=== PATIENT | male | born 1950 | race Caucasian/White ===

== ENCOUNTER 2019-08-10 05:49 | Inpatient (IN) | payer OTHER, SELFPAY ==
[2019-07-27 13:58] VITALS: BMI 21.9
[2019-08-10] VITALS (16 sets, daily range): BP systolic 92–175; BP diastolic 59–86; PULSE 52–98; RESP 6–20; TEMP 36.1–37.3; O2SAT 91–99; BMI 20.7
--- NOTE | 2019-08-10 | PATH_ITS ---
[facility] Accession Number: [id number] . 01 Material submitted: . bone - L4-L5 DISC . 01 Diagnosis: L4-L5 Disc, Biopsy: Osteocartilaginous fragments and disc material with actively inflamed granulation tissue and necroinflammatory debris also present. Negative for granulomatous inflammation and malignancy. [facility] 08/13/2019 1752 Local . 01 Comment: Correlation with pending culture studies is recommended to evaluate for an infectious process. . Initial and multiple deeper levels have been examined. . As part of ongoing quality control lab tech, this case was also reviewed by Dr. Kayla Carrero, who agrees with the interpretation. . . . . . . . 01 Electronically signed: . Vandana Frank MD, Pathologist NPI- [id number] . 01 Gross description: . The specimen is received in a formalin-filled container, labeled L4-L5 disc, and consists of multiple pink-radford, focally hemorrhagic soft tissue fragments including radford calcified bone fragments, 2.4 x 2.3 x 0.7 cm in aggregate. The specimen is submitted in toto in A1 following decalcification. ([id number]) /MRV 08/11/2019 1605 Local . 01 Pathologist provided ICD-10: M41.85 . 01 CPT . 309031, [id number] Performed at: [address] [facility] [address], [place], [place] [id number] MD Jakob Ortega MD Phone: [phone]
--- NOTE | 2019-08-10 | DI.RAD.S_ITS ---
PROCEDURE: XR LUMBAR SPINE 2-3V INDICATIONS: T12-L1, L3-L4, L4-L5 XLIF, L5-S1 TLIF TECHNIQUE: 4 fluoroscopic views of the lumbar spine were acquired. COMPARISON: Lumbar spine CT 05/16/2019. FINDINGS: Pedicle screws at the left L4-L5 and L5-S1 levels. Multilevel intervertebral body spacer. Marked scoliosis and degenerative change. IMPRESSION: Left pedicle screws at L4-L5 and L5-S1. Dictated by: Leonel Levine M.D. on 08/10/2019 at 15:04 Approved by: Leonel Levine M.D. on 08/10/2019 at 15:08
[2019-08-10] MEDS: LACTATED RINGERS 1,000 ML 42 ML IV ×2 (07:10→10:31)
--- NOTE | 2019-08-10 07:26 | PM.PREOP ---
Pre-operative Note Interval Note History & Physical reviewed/Exam performed by Physician: Yes Changes to H&P: Yes H&P completed within 30 days and has changed as indicated here:: His CT shows anterior autofusion at L1-3. We will plan on the L34, L45 XLIF, with attempt at T12-L1, then flip for L5S1 TLIF today.
[2019-08-10] MEDS: CLINDAMYCIN 600 MG/50 ML PIGGYBACK 50 MG IV ×3 (07:52→21:27)
--- NOTE | 2019-08-10 08:43 | SUR.OPER ---
Addendum entered by Josh Islas R.N. 08/10/19 10:40: wound covered with a tegaderm Original Note: stage 2 decubitus ulcer right lateral hip per surgeon diagnosis, dry flaking skin over torso and back circumfrentially
--- NOTE | 2019-08-10 08:51 | SUR.OPER ---
Right lateral on padded OR table. Head on pillow, gel axillary roll right axilla, pillow to support left arm. Legs flexed, pillows between legs, gel pad under down leg and ankle. Multiple passes of 3 inch cloth tape across shoulder, hip, upper and lower legs to secure patient on OR table.
--- NOTE | 2019-08-10 08:53 | SUR.OPER ---
Prone on spine table, head in foam head support, padded chest and pelvic supports, gel pad at knees, lower legs supported by pillows; nipples, genitalia and toes free of pressure, arms secured on foam padded arm boards at <90 degrees abduction. Tape over blanket at thigh secured to table.
[2019-08-10] MEDS: THROMBIN (RECOMBINANT) 5,000 UNIT VIAL 5000 UNIT TOP (09:12)
[2019-08-10] MEDS: BUPIVACAINE 0.5% (PF) 4 ML, MORPHINE-PF 4 MG, BUTORPHANOL 1 MG, fentaNYL 100 MCG INJ (09:13)
[2019-08-10] MEDS: SODIUM CHLORIDE 0.9% 1,000 ML, GENTAMICIN 80 MG IRR (09:14)
[2019-08-10] MEDS: VANCOMYCIN 1,000 MG VIAL 1000 MG TOP (09:16)
--- NOTE | 2019-08-10 10:39 | SUR.OPER ---
pt receive a small skin tear on the left anterior forearm when positioning from lateral to posterior. tear covered with a tegagerm
--- NOTE | 2019-08-10 14:22 | PM.OP.1 ---
Operative Date/Time/Diagnoses Date of procedure: 08/10/19 Time of procedure: 14:22 Pre-op diagnosis: Lumbar stenosis with radiculopathy Lumbar spondylolisthesis Thoracolumbar scoliosis Post-op diagnosis: same Procedure & Clinicians Procedure: T12-L1, L3-4, L4-5 anterior fusion with cages L5-S1 TLIF (post/post interbody fusion) with cage L4, L5, S1 screws L4-5 laminectomy L5-S1 Barnes laminectomy use of microscope Placement of epidural catheter Same procedure as scheduled: Yes Indications: [age] year old male with intractable pain from lumbar stenosis and scoliosis. They had failed conservative management and requested operative intervention. Risks and benefits of surgery were discussed and appropriate consents were obtained. Surgeon: Franklin Griffin Missile Inspector: Louisa Weber Anesthesia Type: General Operative Notes Findings: Extremely friable disc at L4-5 Closure Type: primary Specimen(s): other (L4-5 disc material for culture and pathology) Prosthetic devices, grafts, tissues, transplants, or devices: NuVasive MAS Reline screws NuVasive XLIF cage Globus Rise cage Applied: catheter Estimated Blood Loss (mL): 20 Blood products transfused: none Procedure in detail: Patient was brought to the operating room and intubated on the table. Time-out was performed. They were then rolled over to the lateral decubitus position with the [id number]. The table was bent and they were taped down in the correct position. The bed was angled and X-rays were taken to confirm a true AP and lateral at L4-5. Preoperative antibiotics were given. The left flank was prepped and draped in standard sterile fashion. Using fluoroscopy, a 3 cm incision was made above the iliac crest. We bluntly dissected down with Metzenbaum scissors and split the 3 abdominal muscle layers. We dissected out the retroperitoneal space and using finger guidance, brought our 1st dilator down to the psoas muscle. Using neuromonitoring and fluoroscopy, we placed it through the psoas onto the L4-5 disc space in an anterior position and gradually pulled the dilator posteriorly along the disc space. We placed our guidewire and measured our depth for the retractor. We then dilated with the next 2 dilators and then placed our retractor over the dilators. As we pushed down on the dilators they popped right through the lateral wall of the disc into the disc itself with no resistance. There was still a safe zone confirmed under x-ray. Position was confirmed with fluoroscopy and the retractor was locked down to the bar. We opened up the retractor and checked with neuro monitoring. We then placed the pawel and again checked with neuro monitoring. The retractor was opened further and the ALL retractor was placed. An annulotomy was performed. We took samples of the disc material and sent it to pathology. We also took culture swabs as this disc material was extremely friable and had no resistance. We then performed a complete diskectomy with ring curette, pituitary, box osteotome. A Donahue was advanced across the disc space under fluoroscopy to release the lateral annulus on the opposite side. We then used sequentially larger trials and confirmed under fluoroscopy. This mostly lodged in the right-hand side of the bone but never opened up very much. An XLIF cage was packed with Osteocel bone graft and impacted into the L4-5 disc space with fluoroscopy for the anterior fusion at this level. The wound was irrigated. The retractor was closed down. The pawel was removed. We carefully removed the retractor with direct visualization to make sure there was no neurovascular or abdominal injury. We then went up to L3-4. The table had to be greatly tilted for the angle at this level. We did the same procedure with dilating, opening up our retractors with fluoroscopy and neuro monitoring. We performed a diskectomy and release the lateral annulus. We trialed and then placed a XLIF cage packed with Osteocel bone graft for the anterior fusion at L3-4. We were able to expand the height on the right-hand side when we placed our cage. The retractor was carefully removed under direct visualization. We then repositioned the table and angled up to the T12-L1 level. We were able to work up here and again placed our dilators then retractors. We performed a complete diskectomy at T12-L1 and released the lateral annulus on the opposite side. We then impacted the cage with bone graft for the anterior fusion at T12-L1. Again the retractors were carefully removed under direct visualization. Final x-rays were taken. Because the disc was so soft at L4-5 and only was fixed in the right hand aspect of the disc space, I decided to put screws up to L4 and place a ely when we went posteriorly to stabilize this. The muscle fascia was closed, superficial tissue was closed. The skin was closed. Sterile dressing was placed. The patient was then rolled over on the well-padded prone position on the Idris table. Using fluoroscopy for localization, a 5 cm incision was made to the right of the midline. Bovie was used to split the fascia. We then percutaneously placed Jamshidi needles down the right pedicles of L4, L5 and S1 under fluoroscopic guidance and neural monitoring. These were switched over guidewires, tapped, and the screw shanks were placed. We then opened up our retractor and cleared the posterolateral gutter. The L5 transverse process and sacral ala were decorticated with a bur. We cleared medially over the facets and the lamina. We brought in the microscope. A combination of a bur and Kerrisons and curettes were used to perform a right-sided Barnes laminectomy at L5-S1. We had to work through the hypertrophic pars defect. Because the patient's deformity, we actually had to take the retractor blade up to the L4 screw to be able to visualize at this level. This also included removing the L4-5 facet and performing a laminectomy at L4-5. The canal was adequately opened at this point. We worked out into the neural foramen to make sure they were clear and fully traced out the exiting L4 and L5 nerve roots. A complete L5-S1 facetectomy was performed to decompress the L5 root. Partial facetectomy was performed at L4-5. Due to the patient's grade 3 spondylolisthesis and deformity, we actually had to work cephalad to the L5 nerve root to get to the L5-S1 disc space. The root was carefully retracted caudally and osteotome was used to take off part of the back wall of the S1 body. We then carefully retracted the dura medially and the L5 root inferiorly and expose the disc space. This was confirmed under fluoroscopy and we advanced a paddle into the disc space. This was opened up. However this collapsed back down again as soon as we removed the paddle. I moved the retractor blade back down to L5 and then we were able to distract across the screws and hold them open when we were using the paddles. We used Terrance and pituitaries to complete the diskectomy. More bone graft was packed into the disc space. We then placed our globus Rise cage. We had a greatly torque across the retractor to be able to get the blades out of the way and get enough angle to be able to go into our disc space while carefully retracting our nerves. This was impacted under direct visualization as well as fluoroscopic visualization until it went into the L5-S1 disc space and then was expanded under fluoroscopy. This completed the posterior interbody section of the TLIF. The wound was copiously irrigated. An epidural catheter was primed with 4mL of 0.5% bupivacaine, 100 mcg fentanyl, 4 mg Duramorph, 1 mg Stadol. The dura was depressed under the cephalad lamina with a ball probe and the epidural catheter was gently advanced 6 cm cephalad. Screw heads were placed over L4, L5, S1 and a ely was placed and locked down for stability for the next few days. We then took our remaining bone graft and our locally harvested bone graft and placed a posterolateral gutter for the posterolateral portion of the fusion for the L5S1 TLIF. The fascia was then closed. The epidural was then injected without resistance. The catheter was pulled and we closed more over the fascia. Vancomycin powder was placed in the wound. The superficial and skin were closed. Sterile dressing was placed. The patient was then rolled over, extubated, brought to the recovery room with no complications. Complications: none Post-operative Condition: stable Disposition: PACU Plan for aftercare: Inpatient. Up with therapy as tolerated tomorrow. Plan for return to the operating room for the posterior instrumentation and fusion from T10 through S1 on .
--- NOTE | 2019-08-10 14:26 | SUR.PHASEI ---
DRSG TO SURGICAL SITE OBSERVED TO BE C/D/I AT THIS TIME.
--- NOTE | 2019-08-10 14:36 | SUR.PHASEI ---
ALLEVYN GENTLE BORDER DRESSING APPLIED TO RIGHT HIP AND LEFT FOREARM IN REGARDS TO SKIN CONDITIONS REPORTED FROM THE RECEIVING SIGN PAINTER WHILE RECEIVING PT TO PACU.
--- NOTE | 2019-08-10 15:49 | SUR.PHASEI ---
PT TRANSFERRED TO ACUTE CARE FLOOR IN STABLE CONDITION, VSS. BEDSIDE REPORT GIVEN TO THERESA POLO UPON ARRIVAL TO ROOM. PT FAMILY AT BEDSIDE UPON ARRIVAL. DRSG OBSERVED TO BE C/D/I. VSS. TRANSFERRED CARE OF PT TO THERESA POLO.
[2019-08-10] MEDS: OXYCODONE/ACETAMINOPHEN 5/325 TABLET 1 TAB PO ×2 (16:30→21:25)
[2019-08-10] MEDS: LACTATED RINGERS 1,000 ML 125 ML IV (16:54)
[2019-08-10] MEDS: CELECOXIB 200 MG CAPSULE 400 MG PO (16:59)
--- NOTE | 2019-08-10 19:30 | PC.NURSE ---
Addendum entered by Flaquita Patel R.N. 08/10/19 22:39: Pt med again at 2100 for discomfort. Resting quietly at this time Dsg remains CDI Call light w/in sam. bed alarm on for pt safety. Continue w/plan of care. Original Note: Pt arrived to room at 1530 Awake/drowsey. Lungs clear. SpO2 98% RA Med at 1630 w/percocet for 6/10 pain, Pt able pt rest comfortably at this time. IV LR infusing into the Left hand via pump as per orders. Call light w/in reach, bed alrm on for pt safety.
[2019-08-10] MEDS: SIMVASTATIN 40 MG TABLET PO (21:26)
[2019-08-10] MEDS: CELECOXIB 200 MG CAPSULE PO (21:26)
[2019-08-10] MEDS: GABAPENTIN 300 MG CAPSULE PO (21:26)
[2019-08-10] MEDS: DOCUSATE 100 MG CAPSULE PO (21:26)
[2019-08-10] MEDS: SENNOSIDES 8.6 MG TABLET 17.2 MG PO (21:26)
[2019-08-10] MEDS: SODIUM CHLORIDE 1,000 MG TABLET 1000 MG PO (21:41)
[2019-08-10] MEDS: MAGNESIUM CHLORIDE 64 MG TABLET PO (21:41)
[2019-08-11] MEDS: LACTATED RINGERS 1,000 ML 125 ML IV ×3 (01:25→21:32)
[2019-08-11] MEDS: PANTOPRAZOLE 20 MG TABLET PO (05:13)
[2019-08-11] MEDS: CLINDAMYCIN 600 MG/50 ML PIGGYBACK 50 MG IV (05:13)
[2019-08-11 05:51] VITALS: BP 152/58; PULSE 72; RESP 16; TEMP 36.2; O2SAT 98
[2019-08-11 06:31] LABS: Hemoglobin 9.7 g/dL (13.5-17.5)
[2019-08-11 08:00] VITALS: BP 127/71; PULSE 67; RESP 16; TEMP 36.2
--- NOTE | 2019-08-11 08:05 | P.PN_ITS ---
Subjective Subjective Date Patient Seen: 08/11/19 Time Patient Seen: 08:05 Interval history: Pain is about a 7/10 on the back. No leg pain. Exam Vital Signs (past 8 hours): - 08/11/19 05:51 Temperature 97.2 F L Pulse Rate 72 Respiratory Rate 16 Blood Pressure 152/58 H Pulse Oximetry 98 Oxygen Delivery Method Room Air Oxygen Flow Rate 0 Const Orientation: alert and oriented x3 Back/Spine/Pelvis Other: Mild dry drainage. 5/5 motor both lower extremities. Objective Labs Result Diagrams: 08/11/19 06:10 Labs: Laboratory Results - last 24 hr 08/11/19 06:10 Hgb 9.7 L Hct 28.0 L Assessment & Plan Post-op Postoperative Procedures: Procedures Operation Date: 08/10/19 07:45 Actual Procedures Side Surgeon p T1- L1, L3-L5 anterior instrumented fusion and L5S1 posterior instrumented fusion Franklin Griffin MD Operation Date: 08/12/19 11:15 <No data on this case meets the specified criteria> He is stable. We are going to mobilize him today with physical therapy. R emoved the catheter. He will be NPO after midnight for surgery tomorrow with the posterior instrumen tation and fusion from T10 through S1. Risks and benefits again were discussed with the patient. Consent form was signed.
[2019-08-11 08:51] VITALS: PULSE 67; O2SAT 97
[2019-08-11] MEDS: ASPIRIN EC 81 MG TABLET PO (08:52)
[2019-08-11] MEDS: CELECOXIB 200 MG CAPSULE PO ×2 (08:53→21:33)
[2019-08-11] MEDS: buPROPion SR 150 MG TAB PO ×2 (08:53→21:33)
[2019-08-11] MEDS: DOCUSATE 100 MG CAPSULE PO ×2 (08:53→21:33)
[2019-08-11] MEDS: OXYCODONE/ACETAMINOPHEN 5/325 TABLET 1 TAB PO ×4 (08:54→22:32)
[2019-08-11] MEDS: METOPROLOL ER 50 MG TABLET 200 MG PO (08:54)
[2019-08-11] MEDS: LISINOPRIL 20 MG TABLET 40 MG PO (08:54)
[2019-08-11] MEDS: SODIUM CHLORIDE 1,000 MG TABLET 1000 MG PO ×2 (08:55→21:34)
[2019-08-11] MEDS: MAGNESIUM CHLORIDE 64 MG TABLET PO ×2 (08:55→21:34)
--- NOTE | 2019-08-11 09:29 | OT.IP.TRT ---
Current Diagnoses Other forms of scoliosis, thoracolumbar region (08/10/19) Spinal stenosis, lumbar region with neurogenic claudication (08/10/19) Surgery Performed Operation Date: 08/10/19 07:45 Actual Procedures p T1- L1, L3-L5 anterior instrumented fusion and L5S1 posterior instrumented fusion - Franklin Griffin MD Operation Date: 08/12/19 11:15 <No data on this case meets the specified criteria> Occupational Therapy Treatment Note M3 OT- IP Subjective and Pain Start: 08/11/19 09:28 Freq: Status: Active Protocol: Document 08/11/19 09:28 [facility] (Rec: 08/11/19 09:29 [facility] [id number]) OT- Subjective Occupational Therapy Visit Type Type Administrative Note Notes Pt to have second back surgery tomorrow, therefore see pt after 2nd back surgery completed for OT eval.
--- NOTE | 2019-08-11 09:59 | PT.IIE ---
Current Diagnoses Other forms of scoliosis, thoracolumbar region (08/10/19) Spinal stenosis, lumbar region with neurogenic claudication (08/10/19) Surgery Performed Operation Date: 08/10/19 07:45 Actual Procedures p T1- L1, L3-L5 anterior instrumented fusion and L5S1 posterior instrumented fusion - Franklin Griffin MD Operation Date: 08/12/19 11:15 <No data on this case meets the specified criteria> Surgical History (Last Updated 07/27/19 @ 14:19 by Marley Parikh RN) H/O vasectomy (Acute) History of total right hip arthroplasty (Acute ~2015) Hx of tonsillectomy (Acute) S/P TURP (Acute ~10/2018) Medical History (Last Updated 07/27/19 @ 14:19 by Marley Parikh RN) Acid reflux (Acute) Arthritis (Acute) Back pain (Acute) Easy bruisability (Acute) Enlarged prostate (Acute) HLD (hyperlipidemia) (Acute) HTN (hypertension) (Acute) Myocardial infarction (Acute ~1993) Pneumonia (Acute) Sciatica (Acute) Ulcer (Acute) Physical Therapy Inpatient Evaluation/Re-Eval M1 PT/OT-IP Prior Functional Status Start: 08/11/19 12:07 Freq: NEEDED Status: Active Protocol: Document 08/11/19 09:59 AB (Rec: 08/11/19 12:18 AB [id number]) Medical Review Prior Functional Status Medical History Reviewed Yes Communication able to make needs known but pt with confusion Mobility and Gait pt stated that he is modified independent with all mobilities and ambulation using SPC Social History Household Members spouse,children Living Arrangements House Number of Floors (Floors) One Floor Number of Stairs To Enter/Railing? 3 steps to enter without rails Home Environment Standard Height Toilet,Tub/ Shower Home Equipment Front Wheel Walker,Straight Cane,Hand Held Shower,Grab Bars In Shower Additional Social History Comment spouse stated that pt is not formally diagnosed but may have early onset dementia M2 PT-IP Current Condition Start: 08/11/19 12:07 Freq: NEEDED Status: Active Protocol: Document 08/11/19 09:59 AB (Rec: 08/11/19 12:18 AB [id number]) Physical Therapy Current Condition Current Condition Evaluation Date 08/11/19 Treatment Diagnosis s/p T12-L5 anterior fusion; L5S1 TLIF; difficulty in walking Onset Date 08/10/19 Precautions Lumbar Precautions Log Roll,No Twisting,Limit Bending,Lifting Restriction of 10 lbs,Gait Belt above Incisional Area Other Precautions falls M3 PT-IP Subjective Start: 08/11/19 12:07 Freq: NEEDED Status: Active Protocol: Document 08/11/19 09:59 AB (Rec: 08/11/19 12:18 AB [id number]) Subjective Physical Therapy Visit Type Type Initial Evaluation Visit Start Time 09:59 Visit Stop Time 10:54 Total Visit Minutes 55 Number of MARKETING CLERK Visits 0 Physical Therapy Visit Comments Patient Comments pt agreeable to do PT Therapy Pain Assessment Pain When Pain Assessed At Rest Pain Present Pain Present Pain Reported Location lower back pain Intensity 7 Scale Used Numeric (1 - 10) Pain Management Techniques Apply Cold,Re-positioning, Timing of Activity with Medications M4 PT-IP Mobility and Gait Start: 08/11/19 12:07 Freq: NEEDED Status: Active Protocol: Document 08/11/19 09:59 AB (Rec: 08/11/19 12:18 AB [id number]) PT-Bed Mobility Assessment Rolling Type of Rolling Log Rolling Level of Assist Maximal Assistance Supine to Sit Supine to Sit Maximum Assistance,1 Person Assistance PT-Transfer Assessment Sit to and From Stand Sit to and from Stand Moderate Assistance,1 Person Assistance,Use of Upper Extremities Equipment Transfer Assistive Device Gait Belt,Front Wheeled Walker Orthotic/Prosthetic Devices or Brace: No Transfers Transfer Destination Chair Transfer Technique Pt ambulated using FWW Transfer Ability Level of Assist Moderate Assistance,1 Person Assistance,Use of Upper Extremities Comments Mobility Comments pt can be impulsive. requires max cues with all tasks. Gait Assessment Gait Gait Assistance Required: Moderate Assistance Distance (Feet) 7 Able to Maintain Weight Bearing Status Yes During Gait Assistive Devices Assistive Device Gait Belt,Front Wheeled Walker Orthotic/Prosthetic Devices or Brace: No Gait Deviations General Gait Pattern Antalgic,Decreased Stride Length,Decreased Feet Clearance Factors Limiting Gait Function Factors Limiting Gait Function Decreased Activity Tolerance, Decreased Sensation,Decreased Strength,Difficulty Following Directions,Incoordination, Limited Range of Motion,Pain, Poor Balance,Poor Safety Awareness Comments Gait Comments pt was able to take steps during transfer using fWW PT-Balance Assessment Sitting Balance and Reactions Static Sitting Balance Ability Good Dynamic Sitting Balance Ability Fair Standing Balance and Reactions Static Standing Balance Ability Fair Dynamic Standing Balance Ability Poor Device Used FWW M5 PT-IP Objective Assessments Start: 08/11/19 12:07 Freq: NEEDED Status: Active Protocol: Document 08/11/19 09:59 AB (Rec: 08/11/19 12:18 AB [id number]) Orientation Orientation/Cognition Level of Alertness Alert Orientation Name Language Function Ability No Deficits Noted Safety Awareness Decreased Safety Awareness Memory Description Short Term Impaired,Chcf Impaired Comments Pt does not know the date/year and his age Gross Range of Motion Lower Extremity ROM Assessment Within Functional Limits Strength Lower Extremity Strength Assessment Bilaterally Impaired Comments Strength Comments RLE: 3+/5 LLE: hip: 3-/5 knee: 3-/5 Sensation Assessment Sensation Gross Sensation Right LE Impaired,Left LE Impaired Light Touch Impaired Proprioception (Position) Impaired Sensation Description Numbness,Tingling Muscle Tone Muscle Tone WNL Yes M6 PT-IP Treatment Start: 08/11/19 12:07 Freq: NEEDED Status: Active Protocol: Document 08/11/19 09:59 AB (Rec: 08/11/19 12:18 AB [id number]) Physical Therapy Treatment Education Education Provided Precautions,Weight Bearing Status,Post-Op Packet,Safety M7 PT-IP Assessment and Plan Start: 08/11/19 12:07 Freq: NEEDED Status: Active Protocol: Document 08/11/19 09:59 AB (Rec: 08/11/19 12:18 AB [id number]) PT Summary Assessment and Plan Potential Rehabilitation Potential Fair Status of Condition at Evaluation Evolving Summary Impairments Pain,ROM,Strength,Balance, Coordination,Sensation,Tone, Cognition,Bed Mobility, Transfers,Gait,Activity Tolerance Assessment Summary pt requires mod to max A with mobility and will have a 2nd back surgery scheduled for tomorrow. d/c plan depending on mobility level and progress after 2nd surgery. talked to spouse and agreed to SNF if pt needs to go to one. will have to assess mobility. Goals Bed Mobility Goal Standby Assistance Transfer Goal Standby Assistance,Front Wheeled Walker Gait Goal Standby Assistance,Front Wheel Walker Gait Distance 200 Other Goals up/down 3 steps without rails/ SPC/BICYCLE REPAIRER CGA Days to Meet Goals 10 Frequency of Treatment Frequency Of Treatment Twice a Day Treatment Plan Physical Therapy Treatment Plan Bed Mobility Training,Transfer Training,Gait Training, Therapeutic Exercise,Balance Retraining,Post Op Education, Discharge Planning,Hot or Cold Pack,Neuromuscular Re-ed, Coordination Retraining,Manual Therapy Recommendations To Nursing Amount of Assist Needed 1 Person Assist Discharge Recommendations PT Discharge Recommendations Home with 28/04 Assist,Home Health,SNF Rehab
[2019-08-11 12:00] VITALS: BP 100/59; PULSE 64; RESP 16; TEMP 37.1
--- NOTE | 2019-08-11 13:39 | PC.NURSE ---
Day Shift- Pt oriented to name, HOANG, states he's in an office, unable to state which one. July or August, 2017. Unable to state why he is here. Upon reassessment at 1335, pt stated his name, HOANG, he's in the [place], motel/hotel, he's here for his back...surgery tomorrow. When asked what happened yesterday, pt unable to describe, when this RN stated he had back surgery, pt states yes and I have surgery tomorrow. CMS+ Lower back dressing of gauze and tegaderm intact with 50% sero-sang drainage. Dr. Griffin aware this AM with assessment at 0740. Urinary catheter removed at 1200 by Lynne Mir nursing home physician with her instructor Luke. removed without difficulty and post removal instructions given with urinal within reach. At 1335, pt had no urge to void. Pt's stated that pt did not have any voiding issues at home that she was aware of. Pain 3/10 aching to lower back, medicated with PRN Percocet at 0855 and 1325. Chair alarm on and call light within reach.
--- NOTE | 2019-08-11 13:55 | CM.DANOTE ---
DCP assessment: EMR reviewed: patient is a 69 yr old male who was admitted to following spinal surgery. Patient is scheduled for a second part of his surgery tomorrow 08/12/2019. PCP is with [facility] but patient isn't sure of providers name. CM met with patient at bedside and explained CM role. Patient lives in a single level home with his very supportive and 3 adult children. Patient was alert and oriented at the time of Cm meeting. 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 DME: patient has FWW and cane at home. Patients is Merari Ingram is his DPOA. Insurance: [address] self pay. Plan: D/C home with supportive family when medically stable. No identified D/C planning needs noted at this time. CM department will continue to follow to determine if any new D/C planning needs are identified. Addie Guy RN Discharge Planning/Care Management CM Discharge Assessment Start: 08/11/19 13:54 Freq: Status: Active Protocol: Document 08/11/19 13:54 HS (Rec: 08/11/19 13:55 HS [id number]) Discharge Planning Assessment Assigned Sales Record Clerk Addie Guy RN DPOA/Assigned Designee Name Merari Ingram () Contact Information [phone] Advance Directives? Yes Advance Directives on File No History Provided By Patient Has Patient been admitted in last 30 No days? Prior Living Arrangements House Household Members spouse,children Type of transporation used prior to Drives own vehicle admit Independent with ADL's Yes Is patient alert and oriented? Yes Caregiver for Another No DME Already Rented / Owned FWW / Walker,Cane Discharge Plan Home Whiteboard Updated in Patient Room with Yes name and ext. # of Sales Record Clerk Review Status In Process Next Review Type Continued Stay Review Pre-Anesthesia Assessment Start: 07/27/19 13:57 Freq: Status: Complete Protocol: Document 07/27/19 13:58 CAB (Rec: 07/27/19 14:33 CAB [id number]) Pre-Anesthesia Assessment PAC Comment Hyponatremia 122 on labs received from Surgeon. Called PCP office. Pt has been on fluid restriction and repeat Na+ 133 on labs 06/23/19 , scanned to record Patient Information Reviewed Via Phone Assessment Assessment Completed With Patient,Spouse Diagnostic Results BMP/CMP,CBC,EKG Comment Outside labs/EKG scanned to record Primary Care Provider Dave Todd Seen Specialist in Last 12 Months Yes Specialist Seen Orthopedist,Urologist Primary Language Belarusian Tear Down Man Required No Height 170.18 cm Weight 63.503 kg Body Mass Index (BMI) 21.9 Hearing Ability Normal Visual Assist Contacts,Glasses Dentition Type Teeth, Natural Present,Teeth, Missing Other Aids No Hx Anesthesia Reactions No Hx Family Anesthesia Reaction No Hx Malignant Hyperthermia No Hx Blood Transfusions No Anesthesia Review Requested No alcohol intake current Alcohol Intake Frequency Other: Occasional Smoking Status Current every day smoker Tobacco type cigarettes Smoking packs per day 1 how long ago did patient quit smoking Advised to reduce/stop smoking prior to surgery Substance Use Type does not use Pain Present Pain Reported Musculoskeletal Symptoms Abnormal Gait,Back Pain, Difficulty Walking,Numbness, Tingling History of Falling (Recent or History of No ) Patient is completely paralyzed or No completely immobile Prosthesis or Orthotic Device Cane Mental Status Oriented to own ability Is patient on oxygen? No Does patient have EMERSON/SOB No Hx Sleep Apnea No Currently Taking a Beta Shraddha Yes: Metoprolol Can You Climb a Flight of Stairs Without Yes SOB Hx Chest Pain No Hx SOB No Hx Syncope or Dizziness No Anti-Coagulant Therapy No Has a Medication Administration Professional No Cardiac Testing No Hx Pacemaker/ICD No Pacemaker Rep Required? No Cardiac Clearance Received Not Applicable Diet Type At Home Regular dysphagia No Urinary Catheter Present No Hx Urinary Self Catheterization No Diabetes No Hx Drug Resistant Organism No Presence of External or Internal Medical No Devices Have you traveled outside the [facility] States in the last 30 days? Marital Status Lives With spouse,children Prior Living Arrangements House Number of Floors (Floors) One Floor Support System Child/Children,Spouse Does the Patient Have Assistance After Yes Surgery Patient Discharge Plan Description Return Home Feels Safe in Current Environment Yes Been Physically Hurt or Threatened By a No Person in Current Environment Do you have thoughts of harming yourself None or others? Are you currently considering suicide? No Do you have a plan to hurt yourself or No Plan others? Do You Have Any Spiritual Beliefs That No May Affect Your HC Choices? Do You Have Any Cultural Practices That No May Affect Your HC Choices? Spiritual Referral Shinto clergy/Lay shovel logger visit Comment Shinto Who Can We Speak to About Patient's Care Family, friends Identifying Code for Release of Patient Declines to issue Information Health Care Proxy/Next of Kin Merari () Health Care Proxy Emergency Contact Name Merari () Emergency Contact Advance Directives? Yes Advance Directives on File No Requested Patient Bring Advanced Yes Directives DOS Power of Jigger Crown Pouncing Machine Operator Yes Power of Jigger Crown Pouncing Machine Operator Name Merari () Power of Jigger Crown Pouncing Machine Operator PAC Instructions Do not shave/clip surgical site,Durable medical equipment ,Medications to take/avoid, Nasal antibiotic,No ETOH/ petroleum product on skin DOS, NPO,Post-op transportation,Pre -surgical wash,Sensory aids, Sturdy shoes/comfortable clothes,Do not bring valuables and remove jewelry
--- NOTE | 2019-08-11 14:20 | PT.IPTN ---
Current Diagnoses Other forms of scoliosis, thoracolumbar region (08/10/19) Spinal stenosis, lumbar region with neurogenic claudication (08/10/19) Surgery Performed Operation Date: 08/10/19 07:45 Actual Procedures p T1- L1, L3-L5 anterior instrumented fusion and L5S1 posterior instrumented fusion - Franklin Griffin MD Operation Date: 08/12/19 11:15 <No data on this case meets the specified criteria> Physical Therapy Treatment Note M2 PT-IP Current Condition Start: 08/11/19 12:07 Freq: NEEDED Status: Active Protocol: Document 08/11/19 09:59 AB (Rec: 08/11/19 12:18 AB [id number]) Physical Therapy Current Condition Current Condition Evaluation Date 08/11/19 Treatment Diagnosis s/p T12-L5 anterior fusion; L5S1 TLIF; difficulty in walking Onset Date 08/10/19 Precautions Lumbar Precautions Log Roll,No Twisting,Limit Bending,Lifting Restriction of 10 lbs,Gait Belt above Incisional Area Other Precautions falls M3 PT-IP Subjective Start: 08/11/19 12:07 Freq: NEEDED Status: Active Protocol: Document 08/11/19 14:20 AB (Rec: 08/11/19 15:59 AB [id number]) Subjective Physical Therapy Visit Type Type Treatment Note Visit Start Time 14:20 Visit Stop Time 14:34 Total Visit Minutes 14 Number of PROPERTY OFFICER Visits 0 Physical Therapy Visit Comments Patient Comments pt agreeable to do PT Therapy Pain Assessment Pain Present Pain Present Denied Pain M4 PT-IP Mobility and Gait Start: 08/11/19 12:07 Freq: NEEDED Status: Active Protocol: Document 08/11/19 14:20 AB (Rec: 08/11/19 15:59 AB [id number]) PT-Transfer Assessment Sit to and From Stand Sit to and from Stand Minimal Assistance Equipment Transfer Assistive Device Gait Belt,Front Wheeled Walker Orthotic/Prosthetic Devices or Brace: No Gait Assessment Gait Gait Assistance Required: Moderate Assistance,1 Person Assist Distance (Feet) 25 Assistive Devices Assistive Device Gait Belt,Front Wheeled Walker Orthotic/Prosthetic Devices or Brace: No Gait Deviations General Gait Pattern Antalgic,Decreased Stride Length,Decreased Feet Clearance Factors Limiting Gait Function Factors Limiting Gait Function Decreased Activity Tolerance, Decreased Sensation,Decreased Strength,Difficulty Following Directions,Limited Range of Motion,Poor Balance,Poor Safety Awareness Comments Gait Comments pt sitting on chair and agreeable to do PT. pt wants to stay up on chair after PT session. family in room with pt. pt completed sit to stand min A and cues. pt is impulsive and easily distracted and need constant cues for safety. pt ambulated in room using FWW ~ 25 ft x 2 mod A and cues. pt tends to push FWW too far away and required cues for positioning and safety. noted increase L knee flexion during standing and stance phase of gait requiring cues for quad activation. positioned pt back on chair after ambulation. call light and table placed within reach. chair alarm set up. left pt with family in room. 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 Comments Pt does not know the date/year and his age Gross Range of Motion Lower Extremity ROM Assessment Within Functional Limits Strength Lower Extremity Strength Assessment Bilaterally Impaired Comments Strength Comments RLE: 3+/5 LLE: hip: 3-/5 knee: 3-/5 Sensation Assessment Sensation Gross Sensation Right LE Impaired,Left LE Impaired Light Touch Impaired Proprioception (Position) Impaired Sensation Description Numbness,Tingling Muscle Tone Muscle Tone WNL Yes M6 PT-IP Treatment Start: 08/11/19 12:07 Freq: NEEDED Status: Active Protocol: Document 08/11/19 14:20 AB (Rec: 08/11/19 15:59 [id number]) Physical Therapy Treatment Education Education Provided Precautions,Safety M7 PT-IP Assessment and Plan Start: 08/11/19 12:07 Freq: NEEDED Status: Active Protocol: Document 08/11/19 14:20 AB (Rec: 08/11/19 15:59 [id number]) PT Summary Assessment and Plan Potential Rehabilitation Potential Fair Summary Impairments Pain,ROM,Strength,Balance, Coordination,Sensation,Tone, Cognition,Bed Mobility, Transfers,Gait,Activity Tolerance Progress Towards Goals Slow Progress due to Medical Issues,Slow Progress due to Activity Tolerance Assessment Summary pt requiring mod A for ambulation using FWW. pt plans to have a 2nd back surgery tomorrow per MD note. will continue to assess mobility and progress to determine safe d/c plan. Goals Bed Mobility Goal Standby Assistance Transfer Goal Standby Assistance,Front Wheeled Walker Gait Goal Standby Assistance,Front Wheel Walker Gait Distance 200 Other Goals up/down 3 steps without rails/ SPC/TRAP PULLER CGA Days to Meet Goals 10 Frequency of Treatment Frequency Of Treatment Twice a Day Treatment Plan Physical Therapy Treatment Plan Bed Mobility Training,Transfer Training,Gait Training, Therapeutic Exercise,Balance Retraining,Post Op Education, Discharge Planning,Hot or Cold Pack,Neuromuscular Re-ed, Coordination Retraining,Manual Therapy Recommendations To Nursing Amount of Assist Needed 1 Person Assist Discharge Recommendations PT Discharge Recommendations Home with 28/04 Assist,Home Health,SNF Rehab
[2019-08-11 15:50] VITALS: BP 114/70; PULSE 72; RESP 18; TEMP 37.4
[2019-08-11 19:40] VITALS: BP 128/71; PULSE 72; RESP 16; TEMP 36.9
[2019-08-11] MEDS: SIMVASTATIN 40 MG TABLET PO (21:33)
[2019-08-11] MEDS: GABAPENTIN 300 MG CAPSULE PO (21:33)
[2019-08-11] MEDS: SENNOSIDES 8.6 MG TABLET 17.2 MG PO (21:33)
[2019-08-12] VITALS (20 sets, daily range): BP systolic 106–147; BP diastolic 62–94; PULSE 63–102; RESP 6–18; TEMP 36–37.3; O2SAT 90–100; BMI 20.7
[2019-08-12] MEDS: LACTATED RINGERS 1,000 ML 125 ML IV ×2 (05:17→18:34)
[2019-08-12] MEDS: PANTOPRAZOLE 20 MG TABLET PO (05:39)
[2019-08-12 06:20] LABS: Hematocrit 26.1 % (41-53); Hemoglobin 8.9 g/dL (13.5-17.5)
[2019-08-12] MEDS: CLINDAMYCIN 600 MG/50 ML PIGGYBACK 50 MG IV ×2 (10:45→18:33)
--- NOTE | 2019-08-12 10:52 | PT-IP ANOTE ---
Pt unavailable for PT, scheduled for surgery 111, gone when arrived for tx.
--- NOTE | 2019-08-12 10:52 | PM.PREOP ---
Pre-operative Note Interval Note History & Physical reviewed/Exam performed by Physician: Yes Changes to H&P: No H&P completed within 30 days and has changed as indicated here:: plan for part II, T10-S1 instrumented posterior fusion with bone graft
[2019-08-12] MEDS: LACTATED RINGERS 1,000 ML 42 ML IV ×2 (11:12→15:31)
[2019-08-12] MEDS: CLINDAMYCIN 300 MG in DEXTROSE 5 % IN WATER 50 ML 104 ML IV (12:16)
[2019-08-12] MEDS: VANCOMYCIN 1,000 MG VIAL 1000 MG TOP (13:33)
[2019-08-12] MEDS: THROMBIN (RECOMBINANT) 5,000 UNIT VIAL 5000 UNIT TOP (13:33)
[2019-08-12] MEDS: BUPIVACAINE 0.5% (PF) 4 ML, MORPHINE-PF 4 MG, BUTORPHANOL 1 MG, fentaNYL 100 MCG INJ (13:35)
[2019-08-12] MEDS: SODIUM CHLORIDE 0.9% 1,000 ML, GENTAMICIN 80 MG IRR ×2 (13:36→13:39)
--- NOTE | 2019-08-12 15:29 | OT.IP.TRT ---
Current Diagnoses Other forms of scoliosis, thoracolumbar region (08/10/19) Spinal stenosis, lumbar region with neurogenic claudication (08/10/19) Surgery Performed Operation Date: 08/10/19 07:45 Actual Procedures p T1- L1, L3-L5 anterior instrumented fusion and L5S1 posterior instrumented fusion - Franklin Griffin MD Operation Date: 08/12/19 11:15 Actual Procedures p T10-S1 posterior instrumented fusion - Franklin Griffin MD Occupational Therapy Treatment Note M3 OT- IP Subjective and Pain Start: 08/11/19 09:28 Freq: Status: Active Protocol: Document 08/12/19 15:26 [facility] (Rec: 08/12/19 15:29 [facility] [id number]) OT- Subjective Occupational Therapy Visit Type Type Administrative Note Notes Pt not up from surgery , therefore to see pt tomorrow for OT eval.
--- NOTE | 2019-08-12 16:05 | PM.OP.1 ---
Operative Date/Time/Diagnoses Date of procedure: 08/12/19 Time of procedure: 16:05 Pre-op diagnosis: Lumbar stenosis with radiculopathy Thoracolumbar scoliosis Post-op diagnosis: same Procedure & Clinicians Procedure: T10 through S1 posterior fusion T10 through S1 posterior instrumentation Iliac crest bone graft aspirate Same procedure as scheduled: Yes Indications: 69-year-old male with stenosis and scoliosis. He had the 1st half of his surgery 2 days ago and plan was to bring him back today for the 2nd half with the posterior instrumentation and fusion. Risks and benefits of surgery were again discussed and appropriate consent obtained. Surgeon: Franklin Griffin Sap Bobj Developer: Felicia Davis Anesthesia Type: General Operative Notes Findings: None Closure Type: primary Specimen(s): none sent Prosthetic devices, grafts, tissues, transplants, or devices: NuVasive MAS Reline screws Applied: catheter Estimated Blood Loss (mL): 300 Blood products transfused: none Procedure in detail: Patient brought to the operating room and intubated on the stretcher. He was rolled over to the well-padded prone position on the Idris table. The back was prepped and draped in standard sterile fashion. Preoperative antibiotics were given. Time-out was performed. We used fluoroscopy for localization and made two 30 cm incisions on both sides of the spine. We used Bovie to come down to and split the fascia. We brought in 2 fluoroscopy units for an AP and lateral view and change them as we went along with the patient's curvature.. We had already placed the screws at L4, L5, and S1 on the right. We used fluoroscopy and neural monitoring to percutaneously place Jamshidi needles down the bilateral pedicles of T10, T11, T12, L1, L2, and L3. We also did the left at L4, L5, and S1. We swapped these out over guidewires. On the right-hand side we performed a muscle-splitting approach to get to the transverse processes from T10 through S1. We decorticated the transverse processes the whole way. We also did this on the left-side at L5-S1. We then tapped and then placed our screws from T10 through L3 on the right. We measured and placed our T10 through S1 ely on the right-hand side after bending it to fit along with his curvature. Set screws were all locked down. The ely was long distally and we cut it just past the S1 screw for good fit. The wound was copiously irrigated. Small stab incision was made over the PSIS and using multiple passes, 10 mL of bone graft aspirate were removed. We mixed this with 30 mL of bone chips and placed it out the posterolateral gutter from T10 through S1 for the fusion. We then primed epidural catheter with 4 mg morphine, 1 mg stadol, 100 micrograms fentanyl, and 4 mL of 0.5% Marcaine. We exposed our laminectomy site from 2 days ago at L4-5. This area was cleared out until I could find the dura and the bone. We then carefully fed the epidural catheter cephalad 6 cm. The fascia was closed. The epidural catheter was then injected without resistance and removed. We then tapped and placed our screws from T10 through S1 on the left. Again the ely was conformed to the proper curve and placed down and locked down with set screws on the left. The wounds were irrigated. The fascia was closed on the left. The superficial tissue was closed. The skin was closed. Sterile dressing was placed. He was then rolled over, extubated, and brought to recovery with no complications. Complications: none Post-operative Condition: stable Disposition: PACU Plan for aftercare: inpatient. up with PT
[2019-08-12] MEDS: HYDROMORPHONE 2 MG INJ 0.5 MG IV ×3 (16:42→16:58)
--- NOTE | 2019-08-12 16:47 | SUR.PHASEI ---
Pt moaning and restless. Turned to lt side.
--- NOTE | 2019-08-12 16:47 | SUR.PHASEI ---
Correction-Pt turned to RT side.
--- NOTE | 2019-08-12 16:59 | SUR.PHASEI ---
Bruising and mild edema noted to lt upper lip. Very small scab to lt cheek.
--- NOTE | 2019-08-12 17:04 | SUR.PHASEI ---
Pt resting calmly in bed.
--- NOTE | 2019-08-12 17:25 | SUR.PHASEI ---
report called to Matty
--- NOTE | 2019-08-12 17:44 | PT-IP ANOTE ---
Pt had 2nd scheduled back surgery today and is still not up on the floor. will f/u tomorrow.
--- NOTE | 2019-08-12 17:47 | SUR.PHASEI ---
Pt transferred to the floor on 2lO2. Glasses with patient. Dressings checked with RN. IV saline locked. Report to Matty. CATRINA olmedo.
[2019-08-12] MEDS: OXYCODONE IR 5 MG TABLET 10 MG PO (18:43)
[2019-08-12] MEDS: CELECOXIB 200 MG CAPSULE 400 MG PO (18:43)
[2019-08-12] MEDS: HYDROMORPHONE 1 MG INJ 0.2 MG IV (19:13)
[2019-08-12] MEDS: buPROPion SR 150 MG TAB PO (21:57)
[2019-08-12] MEDS: DOCUSATE 100 MG CAPSULE PO (21:57)
[2019-08-12] MEDS: GABAPENTIN 300 MG CAPSULE PO (21:57)
[2019-08-12] MEDS: SIMVASTATIN 40 MG TABLET PO (21:57)
[2019-08-12] MEDS: SENNOSIDES 8.6 MG TABLET 17.2 MG PO (21:57)
[2019-08-12] MEDS: SODIUM CHLORIDE 1,000 MG TABLET 1000 MG PO (21:58)
[2019-08-12] MEDS: MAGNESIUM CHLORIDE 64 MG TABLET PO (21:58)
[2019-08-12] MEDS: OXYCODONE IR 5 MG TABLET PO (22:13)
[2019-08-13] VITALS (11 sets, daily range): BP systolic 88–115; BP diastolic 43–71; PULSE 74–91; RESP 14–18; TEMP 36.4–37.3; O2SAT 97
[2019-08-13] MEDS: OXYCODONE IR 5 MG TABLET 10 MG PO ×2 (00:15→19:00)
[2019-08-13] MEDS: CLINDAMYCIN 600 MG/50 ML PIGGYBACK 50 MG IV (03:14)
[2019-08-13] MEDS: OXYCODONE IR 5 MG TABLET PO ×2 (05:52→21:11)
[2019-08-13] MEDS: PANTOPRAZOLE 20 MG TABLET PO (05:52)
[2019-08-13 06:20] LABS: Hemoglobin 7.1 g/dL (13.5-17.5)
[2019-08-13 06:30] LABS: Hematocrit 20.6 % (41-53)
--- NOTE | 2019-08-13 06:31 | PC.NURSE ---
Addendum entered by Beatriz Jones R.N. 08/13/19 06:34: Dr Lanaz aware of drainage at site Original Note: notified Dr Griffin of critical value HCT 20.6. acknowledged. Orders received
--- NOTE | 2019-08-13 06:38 | PM.PNPO.1 ---
Subjective Subjective Date Patient Seen: 08/13/19 Time Patient Seen: 06:38 Interval history: He is doing very well. Pain is about 2/10 at rest. No leg pain. Exam Vital Signs (past 8 hours): - 08/12/19 23:30 Temperature 99.2 F Pulse Rate 93 H Respiratory Rate 16 Blood Pressure 136/71 Pulse Oximetry 98 Oxygen Delivery Method Nasal Cannula Oxygen Flow Rate 0 Const Orientation: alert and oriented x3 Back/Spine/Pelvis Other: Moderate drainage on dressing. 5/5 motor both lower extremities Objective Labs Result Diagrams: 08/13/19 05:37 Labs: Laboratory Results - last 24 hr 08/12/19 08/13/19 06:04 05:37 Hgb 7.1 L Hct 20.6 L* Blood Type B Positive Antibody Screen Negative Crossmatch See Detail Assessment & Plan Post-op Postoperative Procedures: Procedures Operation Date: 08/10/19 07:45 Actual Procedures Side Surgeon p T1- L1, L3-L5 anterior instrumented fusion and L5S1 posterior instrumented fusion Franklin Griffin MD Operation Date: 08/12/19 11:15 Actual Procedures Side Surgeon p T10-S1 posterior instrumented fusion Franklin Griffin MD Stable after 2 days of front back T10 through S1 fusion. Continue to mobilize today with physical therapy. I anticipate discharge home in 2-3 more days. However if he is slow with mobilization, could consider intermediate. He has a critical H/H this morning. This is from acute blood loss anemia from his 2 surgeries. This is lower than I would have expected from the intraoperative blood loss, but he did start off yesterday's surgery low already. I am going to transfuse him 1 unit packed red blood cells and recheck again in the morning.
--- NOTE | 2019-08-13 07:34 | PC.NURSE ---
Back dressing showing sero-sang drainage. Dressing changed, gauze and large tegaderm applied. Clean dry and intact now. Pt tolerated well
[2019-08-13] MEDS: ACETAMINOPHEN 325 MG TABLET 975 MG PO (09:38)
[2019-08-13] MEDS: ASPIRIN EC 81 MG TABLET PO (09:38)
[2019-08-13] MEDS: DOCUSATE 100 MG CAPSULE PO ×2 (09:38→20:24)
[2019-08-13] MEDS: CELECOXIB 200 MG CAPSULE PO ×2 (09:38→20:25)
[2019-08-13] MEDS: buPROPion SR 150 MG TAB PO ×2 (09:38→20:24)
[2019-08-13] MEDS: MAGNESIUM CHLORIDE 64 MG TABLET PO ×2 (09:39→20:50)
[2019-08-13 11:47] LABS: Alanine Aminotransferase 21 IU/L (<50); Albumin 2.3 g/dL (3.5-5.0); Alkaline Phosphatase 56 U/L (38-126); Aspartate Aminotransferase 42 IU/L (17-59); BUN Creatinine Ratio 18.9 (6-22); Bilirubin Total 0.4 mg/dL (0.2-1.3); Blood Urea Nitrogen 17 mg/dL (9-20); Calcium 8.6 mg/dL (8.4-10.2); Carbon Dioxide 27 mmol/L (22-32); Chloride 100 mmol/L (98-107); Estimated Glomerular Filt Rate > 60.0 mL/min (>60); Globulin 2.2 g/dL (1.7-4.1); Glucose 95 mg/dL (80-110); HEMOLYSIS < 15 (0-50); Potassium 4.5 mmol/L (3.4-5.1); Sodium 133 mmol/L (137-145); Total Protein 4.5 g/dL (6.3-8.2)
--- NOTE | 2019-08-13 12:00 | PT-IP ANOTE ---
nurse stated that she is about to give the pt transfusion. will f/u.
[2019-08-13] MEDS: LACTATED RINGERS 1,000 ML 125 ML IV (12:51)
[2019-08-13] MEDS: SODIUM CHLORIDE 1,000 MG TABLET 1000 MG PO ×2 (12:51→20:52)
[2019-08-13] MEDS: SODIUM CHLORIDE 0.9% 500 ML 1000 ML IV (13:55)
--- NOTE | 2019-08-13 13:55 | OT.IP.TRT ---
Current Diagnoses Other forms of scoliosis, thoracolumbar region (08/10/19) Spinal stenosis, lumbar region with neurogenic claudication (08/10/19) Surgery Performed Operation Date: 08/10/19 07:45 Actual Procedures p T1- L1, L3-L5 anterior instrumented fusion and L5S1 posterior instrumented fusion - Franklin Griffin MD Operation Date: 08/12/19 11:15 Actual Procedures p T10-S1 posterior instrumented fusion - Franklin Griffin MD Occupational Therapy Treatment Note M3 OT- IP Subjective and Pain Start: 08/11/19 09:28 Freq: Status: Active Protocol: Document 08/13/19 13:53 [facility] (Rec: 08/13/19 13:55 [facility] [id number]) OT- Subjective Occupational Therapy Visit Type Type Administrative Note Notes Atempted to see pt and pt having low BP in supine 79/50, 80/51, sitting in HOB at 27degrees 84/62, HOB at 38 degrees 73/45, spoke to nursing agreed to lower pt back down even though just completed lunch earlier 10 degrees HOB up 82/49. Therefore to try OT eval tomorrow when pt more medically appropriate.
--- NOTE | 2019-08-13 14:00 | PC.NURSE ---
Addendum entered by Radha Segovia R.N. 08/13/19 14:31: bp 89/54 hr 74. map 69. s/p 500 cc's bolus. continue LR at 125cc/hr. awaiting consult. Original Note: CONTINUES TO BE HYPOTENSIVE S/P BLOOD TRANSF. GUS CUEAV NOTIFIED OF SAME INCLUDING BP MEDS HELD THIS AM, INCLUDING METOPROLOL. ASYMPTOMATIC AT REST. ORDERED 500CC NS BOLUS WHICH IS RUNNING AT THIS TIME. PA STATES SHE WILL NOTIFY INA ROGERS WHO IS IN SURGERY, AND ASK HIM TO COME TO FLOOR AND SPEAK W/ AND ORDER HOSPITALIST CONSULT. FAMILY AT BEDSIDE STATE THAT PATIENT HAS HX OF DEMENTIA.
[2019-08-13 14:29] LABS: Hematocrit 22.3 % (41-53); Hemoglobin 7.7 g/dL (13.5-17.5)
--- NOTE | 2019-08-13 16:15 | PM.CN ---
History of Present Illness Consult details Date Patient Seen: 08/13/19 Time Patient Seen: 16:00 Chief complaint: [id number] Reason for consult: Confusion, hypotension, anemia Requesting provider: Franklin Griffin Narrative: Mr. Ingram is a 69-year-old male with past medical history hypertension, hyperlipidemia, probable dementia (being seen by a neurologist but not formally diagnosed per ), possible CAD (reports minor ID in the past with angioplasty only), and prior PUD who yesterday completed a 2 stage extensive lumbar fusion surgery with Orthopedics. He was well postoperatively but nursing staff noted that he was confused. His blood pressure has been borderline low since this morning, but he has not been tachycardic or febrile. His hemoglobin was 7.1 this morning from 8.9 the previous day. On 06/01, prior to operative interventions this was 12.9 with a normal MVC. He received 1 unit PRBCs, and repeat H&H following was 7.7. Orthopedic surgery asked for evaluation of the patient given his medical history, hypotension, and anemia. His at bedside reports borderline low blood pressures as an outpatient in his primary care clinic, she has also noted approximately a 10 lb weight loss in the past month or so due to loss of appetite.. She states his mental status is currently at baseline and he is not confused compared to normal. She also notes recent hyponatremia diagnosed in the outpatient setting and kidney injury that was due to ? Hydronephrosis. PMD is Dr. Todd. He currently denies any fevers, chills, chest pain, shortness of breath, lower extremity edema, orthopnea. He did feel mildly short of breath and fatigue prior to his operation when ambulating over the prior 2 weeks but denied any chest pain or palpitations. [facility] Medical History (Updated 07/27/19 @ 14:19 by Marley Parikh RN) Acid reflux (Acute) Arthritis (Acute) Back pain (Acute) Easy bruisability (Acute) Enlarged prostate (Acute) HLD (hyperlipidemia) (Acute) HTN (hypertension) (Acute) Myocardial infarction (Acute ~1993) Pneumonia (Acute) Sciatica (Acute) Ulcer (Acute) Surgical History (Updated 07/27/19 @ 14:19 by Marley Parikh RN) H/O vasectomy (Acute) History of total right hip arthroplasty (Acute ~2015) Hx of tonsillectomy (Acute) S/P TURP (Acute ~10/2018) Social History household members: spouse and children Smoking Status: Current every day smoker alcohol intake: current Meds Home Medications and Allergies Home Medications Medication Instructions Recorded Confirmed Type aspirin 81 mg PO DAILY 07/27/19 08/10/19 History bupropion HCl 150 mg PO BID 07/27/19 08/10/19 History lisinopril 40 mg PO DAILY 07/27/19 08/10/19 History magnesium chloride [Slow-Mag] 71.5 mg PO BID 07/27/19 08/10/19 History metoprolol succinate 200 mg PO DAILY 07/27/19 08/10/19 History omeprazole 20 mg PO DAILY 07/27/19 08/10/19 History simvastatin 40 mg PO BEDTIME 07/27/19 08/10/19 History sodium chloride 1,000 mg PO BID 07/27/19 08/10/19 History tramadol 100 mg PO Q8H 07/27/19 08/10/19 History celecoxib [Celebrex] 200 mg PO BID PRN #60 cap 08/13/19 Rx docusate sodium [DOK] 100 mg PO BID PRN #30 cap 08/13/19 Rx oxycodone 5 mg PO Q4HR PRN #40 tab 08/13/19 Rx Allergies Allergy/AdvReac Type Severity Reaction Status Date / Time Penicillins Allergy Severe Hives, Verified 08/10/19 06:47 swelling Review of Systems Review of Systems Narrative: All other systems reviewed with the patient and are negative unless otherwise stated. Exam Vital Signs (past 8 hours): - 08/13/19 08:16 08/13/19 08:26 08/13/19 09:20 Temperature 97.8 F 97.8 F Pulse Rate 83 91 H 83 Respiratory Rate 14 16 14 Blood Pressure 104/49 L 104/49 L Pulse Oximetry 97 08/13/19 09:36 08/13/19 09:42 08/13/19 12:51 Temperature 97.9 F Pulse Rate 89 89 80 Respiratory Rate 16 Blood Pressure 88/49 L 88/49 L 88/58 L Pulse Oximetry 08/13/19 12:52 08/13/19 14:31 Temperature 97.5 F L Pulse Rate 80 74 Respiratory Rate 16 Blood Pressure 88/58 L 89/54 L Pulse Oximetry Oxygen Delivery Method Room Air Oxygen Flow Rate 0 Narrative Exam Narrative: GENERAL APPEARANCE: Elderly male. Well developed, well nourished, in no acute distress. SKIN: Inspection of the skin reveals no rashes, ulcerations or petechiae. HEENT: The sclerae were anicteric and conjunctivae were pink and moist. Extraocular movements were intact and pupils were equal, round with normal accommodation. External inspection of the ears and nose showed no scars, lesions, or masses. Lips, teeth, and gums showed normal mucosa. The oral mucosa, hard and soft palate, tongue and posterior pharynx were unremarkable. NECK: Supple and symmetric. There was no thyroid enlargement, and no tenderness, or masses were felt. CHEST: Normal AP diameter and normal contour without any kyphoscoliosis. LUNGS: Auscultation of the lungs revealed no wheezes, rhonchi, or rales. CARDIOVASCULAR: There was a regular rate and rhythm without any murmurs, gallops, rubs. Peripheral pulses were 2+ and symmetric. ABDOMEN: Soft and nontender with normal bowel sounds. No ascites was noted. MUSCULOSKELETAL: There was no joint tenderness or effusions. His surgical dressing is clear dry and intact. EXTREMITIES: No cyanosis, clubbing or edema. NEUROLOGIC: Alert and oriented x 3. Forgetful. Moves all extremities equally, grossly +5/5 in UE and LE bilaterally. Objective ECG Impression: Normal sinus rhythm, low-voltage. Rate 80. Nonspecific T-wave abnormalities. No major changes compared to prior from earlier this year which is scanned into the computer. Labs Result Diagrams: 08/13/19 14:20 08/13/19 05:37 Labs: Laboratory Results - last 24 hr 08/12/19 08/13/19 08/13/19 06:04 05:37 05:37 Hgb 7.1 L Hct 20.6 L* Sodium 133 L Potassium 4.5 Chloride 100 Carbon Dioxide 27 BUN 17 Creatinine 0.90 Estimated GFR > 60.0 BUN/Creatinine Ratio 18.9 Glucose 95 Calcium 8.6 Total Bilirubin 0.4 AST 42 ALT 21 Alkaline Phosphatase 56 Total Protein 4.5 L Albumin 2.3 L Globulin 2.2 Albumin/Globulin Ratio 1.0 Blood Type B Positive Antibody Screen Negative Crossmatch See Detail 08/13/19 14:20 Hgb 7.7 L Hct 22.3 L Sodium Potassium Chloride Carbon Dioxide BUN Creatinine Estimated GFR BUN/Creatinine Ratio Glucose Calcium Total Bilirubin AST ALT Alkaline Phosphatase Total Protein Albumin Globulin Albumin/Globulin Ratio Blood Type Antibody Screen Crossmatch Assessment & Plan Assessment & Plan narrative: Mr. Ingram is a 69-year-old male with past medical history hypertension, hyperlipidemia, probable dementia (being seen by a neurologist but not formally diagnosed per ), possible CAD (reports minor ID in the past with angioplasty only), and prior PUD who yesterday completed a 2 stage extensive lumbar fusion surgery with Orthopedics. Medicine was consulted for possible confusion, hypotension, and anemia. His anemia is acute on chronic and most likely secondary to acute blood loss anemia after surgery. He has no chest pain and his EKG shows no evidence of ischemia and appears similar to his prior done earlier this year and scanned into the chart. His recent weight loss is concerning, but may be related to increasing pain and he does report hypotension prior to the surgery as an outpatient. He should have an outpatient evaluation with age-appropriate cancer screenings for this weight loss. 1. Acute blood-loss anemia -likely secondary to operative interventions. Outpatient hemoglobin was 12.9, and initial postoperative hemoglobin was 9.7. Given recent operative interventions, and that the patient did adequately respond to 1 unit PRBCs given that he was also getting IVF at the time. I asked for CBC to be added on to check his current MCV but this was done on the lab after transfusion and will not be helpful in further evaluation of his anemia. -continue to follow CBC daily at this time. Transfusion goal in this patient should be hemoglobin greater than 7. -consider stool FOBT if hemoglobin is trending down, however he reports no epigastric pain and no dark or bloody stools at this time. Patient is on an NSAID, will start protonix 40 mg PO in the morning for prophylaxis given his prior PUD. -there is no evidence on physical exam of hematoma, but can consider CT imaging if his hemoglobin continues to decline for further evaluation. 2. Hypotension -likely multifactorial secondary to acute blood loss anemia, recent weight loss, and surgery -would hold patient's home blood pressure medications going forward. Only resume if blood pressures are consistently greater than 140 systolic. and would resume lisinopril at lower dosing prior to metoprolol. If he is normotensive he can be discharged without blood pressure medications. 3. Probable dementia - currently reporting the patient is at his baseline mental status. He is at risk for hospital delirium so continue with frequent orienting, adequate sleep at night, and keeping the window shades open during the day time. He has scheduled follow up with a neurologist. 4. HLD - continue current medications. Patient's lab values are reassuring and his anemia is most likely secondary to operative interventions and medicine will sign off. Please do not hesitate to re-consult the hospitalist service if needed for the care of this patient.
--- NOTE | 2019-08-13 17:22 | PC.NURSE ---
Requested an ear pulse ox from RT due to not being able to get a reading from finger pulse ox in room.
--- NOTE | 2019-08-13 17:33 | PT-IP ANOTE ---
checked on nurse and stated that pt is ok for PT. 1331 to 1340: Checked BP in supine: first readin/50 and checked again: 80/51. pt just had lunch and HOB has to elevated. elevated to ~ 30 deg. BP checked again: 84/62. Nurse was informed. Pt on hold for PT due to low BP. 1735: reviewed pt's chart to see vitals and lab and determine if pt is appropriate for PT. BP continues to be low 95/43 and Hgb: 7.7 Hct: 22.3. Will check and follow up on pt tomorrow.
[2019-08-13 18:20] LABS: Add Manual Diff / Slide Review NO; Basophils Absolute Auto 0 /uL (0-100); Basophils Percent Auto 0.5 % (0-2); Eosinophils Absolute Auto 200 /uL (0-450); Eosinophils Percent Auto 3.3 % (2-4); Lymphocytes Absolute Auto 2100 /uL (1100-4500); Lymphocytes Percent Auto 27.5 % (25-40); Mean Corpuscular HGB Conc 34.3 % (30-36); Mean Corpuscular Hemoglobin 31.3 PG (26-34); Mean Corpuscular Volume 91.2 fL (80-100); Monocytes Absolute Auto 700 /uL (0-900); Monocytes Percent Auto 9.7 % (3-14); Neutrophils Absolute Auto 4500 /uL (1500-7000); Platelet Count 235 X10^3/uL (150-400); Red Blood Cell Count 2.45 X10^6/uL (4.5-5.9); Red Cell Distribution Width 13.8 % (11.6-14.8); White Blood Cell Count 7.6 X10^3/uL (4.5-11.0)
[2019-08-13] MEDS: SENNOSIDES 8.6 MG TABLET 17.2 MG PO (20:24)
[2019-08-13] MEDS: GABAPENTIN 300 MG CAPSULE PO (20:24)
[2019-08-13] MEDS: SIMVASTATIN 40 MG TABLET PO (20:24)
[2019-08-13] MEDS: diphenhydrAMINE 25 MG TABLET PO (21:10)
[2019-08-14] VITALS (7 sets, daily range): BP systolic 101–143; BP diastolic 64–77; PULSE 67–103; RESP 16; TEMP 37–37.7; O2SAT 94–97
--- NOTE | 2019-08-14 00:10 | PC.NURSE ---
REGULATORY AND COMPLIANCE TECHNICIAN note: refused pulse oximeter.
[2019-08-14] MEDS: OXYCODONE IR 5 MG TABLET PO ×2 (00:21→11:10)
[2019-08-14] MEDS: LACTATED RINGERS 1,000 ML 125 ML IV (02:03)
[2019-08-14] MEDS: ACETAMINOPHEN 325 MG TABLET 975 MG PO ×3 (02:55→20:31)
[2019-08-14] MEDS: ONDANSETRON 4 MG/2 ML INJ IV (04:21)
[2019-08-14] MEDS: BISACODYL 10 MG SUPP PR (04:34)
--- NOTE | 2019-08-14 05:32 | PC.NURSE ---
DUlcolax supp admin. earlier noted hard stool in the rectal vault. WAs not able to use the bed almaraz & requesting to get up.
[2019-08-14] MEDS: PANTOPRAZOLE 20 MG TABLET PO (05:44)
[2019-08-14 05:45] LABS: Hematocrit 21.4 % (41-53); Hemoglobin 7.6 g/dL (13.5-17.5)
--- NOTE | 2019-08-14 07:37 | PC.NURSE ---
[id number] Pt. sitting in the BSC x 15 mins. was not able to pass stool. Disimpacted a medium hard stool, pt. reported I did dug out some poop before too, when I was at home. Pt was confused & restless all shift.
--- NOTE | 2019-08-14 08:06 | PC.NURSE ---
Patient restless in bed this morning upon my arrival, stating I have to go pee. Calderon in place, but only trace amount of clear yellow urine noted in catheter tubing. Bladder scan shows approximately 600cc of urine in bladder. Patient assisted to reposition, stand and sit on BSC without change in output. Catheter tubing readjusted, balloon deflated and reinflated, and patient repositioned in bed. slow but spontaneous drainage of clear yellow urine noted in calderon bag. 700cc emptied, and patient was able to tolerate well and fell asleep. Sleeping comfortably at this time. Will continue to monitor output closely. Bed alarm on and call light within reach.
--- NOTE | 2019-08-14 10:32 | PT.IPRE ---
Current Diagnoses Syndrome of inappropriate secretion of antidiuretic hormone (08/10/19) Essential (primary) hypertension (08/10/19) Old myocardial infarction (08/10/19) Other forms of scoliosis, thoracolumbar region (08/10/19) Spinal stenosis, lumbar region with neurogenic claudication (08/10/19) Benign prostatic hyperplasia without lower urinary tract symptoms (08/10/19) Arthrodesis status (08/10/19) Surgery Performed Operation Date: 08/10/19 07:45 Actual Procedures p T1- L1, L3-L5 anterior instrumented fusion and L5S1 posterior instrumented fusion - Franklin Griffin MD Operation Date: 08/12/19 11:15 Actual Procedures p T10-S1 posterior instrumented fusion - Franklin Griffin MD Surgical History (Last Updated 07/27/19 @ 14:19 by Marley Parikh RN) H/O vasectomy (Acute) History of total right hip arthroplasty (Acute ~2015) Hx of tonsillectomy (Acute) S/P TURP (Acute ~10/2018) Medical History (Last Updated 07/27/19 @ 14:19 by Marley Parikh RN) Acid reflux (Acute) Arthritis (Acute) Back pain (Acute) Easy bruisability (Acute) Enlarged prostate (Acute) HLD (hyperlipidemia) (Acute) HTN (hypertension) (Acute) Myocardial infarction (Acute ~1993) Pneumonia (Acute) Sciatica (Acute) Ulcer (Acute) Physical Therapy Inpatient Evaluation/Re-Eval M1 PT/OT-IP Prior Functional Status Start: 08/11/19 12:07 Freq: NEEDED Status: Active Protocol: Document 08/11/19 09:59 AB (Rec: 08/11/19 12:18 AB [id number]) Medical Review Prior Functional Status Medical History Reviewed Yes Communication able to make needs known but pt with confusion Mobility and Gait pt stated that he is modified independent with all mobilities and ambulation using SPC Social History Household Members spouse,children Living Arrangements House Number of Floors (Floors) One Floor Number of Stairs To Enter/Railing? 3 steps to enter without rails Home Environment Standard Height Toilet,Tub/ Shower Home Equipment Front Wheel Walker,Straight Cane,Hand Held Shower,Grab Bars In Shower Additional Social History Comment spouse stated that pt is not formally diagnosed but may have early onset dementia M2 PT-IP Current Condition Start: 08/11/19 12:07 Freq: NEEDED Status: Active Protocol: Document 08/14/19 10:32 AB (Rec: 08/14/19 12:24 AB [id number]) Physical Therapy Current Condition Current Condition Evaluation Date 08/11/19 Treatment Diagnosis T10-S1 post. fusion; T12 - L5 anterior fusion; difficulty in walking Onset Date 08/10/19 Precautions Lumbar Precautions Log Roll,No Twisting,Limit Bending,Lifting Restriction of 10 lbs,Gait Belt above Incisional Area Other Precautions falls M3 PT-IP Subjective Start: 08/11/19 12:07 Freq: NEEDED Status: Active Protocol: Document 08/14/19 10:32 AB (Rec: 08/14/19 12:24 AB [id number]) Subjective Physical Therapy Visit Type Type Re-Evaluation Visit Start Time 10:32 Visit Stop Time 11:04 Total Visit Minutes 32 Number of FOOD SAFETY FIELD SPECIALIST Visits 0 Physical Therapy Visit Comments Patient Comments pt stated that he is sleepy but agreed to get out of bed Therapy Pain Assessment Pain When Pain Assessed During Mobility Pain Present Pain Present Pain Reported Location lower back pain Scale Used pain scale not stated Pain Management Techniques Distraction,Re-positioning, Timing of Activity with Medications M4 PT-IP Mobility and Gait Start: 08/11/19 12:07 Freq: NEEDED Status: Active Protocol: Document 08/14/19 10:32 AB (Rec: 08/14/19 12:24 AB [id number]) PT-Bed Mobility Assessment Rolling Type of Rolling Log Rolling Level of Assist Maximal Assistance Supine to Sit Supine to Sit Maximum Assistance,1 Person Assistance Scooting Scooting to Edge of Bed Maximum Assistance PT-Transfer Assessment Sit to and From Stand Sit to and from Stand Maximum Assistance,2 Person Assistance,Use of Upper Extremities Equipment Transfer Assistive Device Gait Belt,Front Wheeled Walker Orthotic/Prosthetic Devices or Brace: No Transfers Transfer Destination Chair,Bedside Commode Transfer Technique Stand Step Pivot Transfer Ability Level of Assist Maximum Assistance,2 Person Assistance,Use of Upper Extremities Comments Mobility Comments Pt with Hgb 7.6 and Hct 21.4 but BP: 140/66. read doctor's note and hospitalist has signed off on pt and informed that low blood count is due to recent surgery and no other interventions needed at this time. talked to the nurse and stated that it is ok to get pt up. pt requested to use the toilet . postiioned bedside commode close to pt. pt completed sit to stand from EOB max A x 2 and max cues. pt requires constant cues for safety as pt is easily distracted and has difficulty following directions. pt completed step pivot transfer using FWW max A x 2 and max cues. pt has to be assisted on how to turn towards the commode. pt completed sit to stand from the commode max A x 2 and max cues. pt was able to maintain standing max A and cues using FWW for support while nurse assisted with hygiene care. pt agreed to sit up on the chair and took ~ 4 steps to get into the chair using FWW max A x 2 and max cues. positioned pt on the chair. call light and table placed within reach. chair alarm set up. BP: 140/63 Gait Assessment Comments Gait Comments was able to take steps during transfers; presents with unsteady standing and L knee increase flexion during standing PT-Balance Assessment Sitting Balance and Reactions Static Sitting Balance Ability Fair Dynamic Sitting Balance Ability Poor Standing Balance and Reactions Static Standing Balance Ability Poor Dynamic Standing Balance Ability Poor Device Used FWW M5 PT-IP Objective Assessments Start: 08/11/19 12:07 Freq: NEEDED Status: Active Protocol: Document 08/14/19 10:32 AB (Rec: 08/14/19 12:24 AB [id number]) Orientation Orientation/Cognition Level of Alertness Confusional State Orientation Name Safety Awareness Decreased Safety Awareness Memory Description Short Term Impaired,Longterm Impaired Gross Range of Motion Lower Extremity ROM Assessment Within Functional Limits Strength Lower Extremity Strength Assessment Bilaterally Impaired Comments Strength Comments RLE: 4-/5 LLE: 3+/5 M6 PT-IP Treatment Start: 08/11/19 12:07 Freq: NEEDED Status: Active Protocol: Document 08/14/19 10:32 AB (Rec: 08/14/19 12:24 AB [id number]) Physical Therapy Treatment Education Education Provided Precautions,Weight Bearing Status,Safety M7 PT-IP Assessment and Plan Start: 08/11/19 12:07 Freq: NEEDED Status: Active Protocol: Document 08/14/19 10:32 AB (Rec: 08/14/19 12:24 AB [id number]) PT Summary Assessment and Plan Potential Rehabilitation Potential Fair Status of Condition at Evaluation Evolving Summary Impairments Pain,ROM,Strength,Balance, Coordination,Sensation,Tone, Cognition,Bed Mobility, Transfers,Gait,Activity Tolerance Assessment Summary pt underwent T12 to L5 anterior fusion 08/10/19 and then underwent T10-S1 posterior fusion 08/12/19. pt requiring max Ax 2 and max cues and has decrease activity tolerance and c/o pain influencing level of mobility and assistance needed. pt will require SNF rehab to improve strength and function. Goals Bed Mobility Goal Contact Guard Assistance Transfer Goal Contact Guard Assistance,Front Wheeled Walker Gait Goal Contact Guard Assistance,Front Wheel Walker Gait Distance 150 Other Goals up/down 3 steps without rails/ SPC/CHILD WELFARE SOCIAL WORKER CGA Days to Meet Goals 10 Frequency of Treatment Frequency Of Treatment Twice a Day Treatment Plan Physical Therapy Treatment Plan Bed Mobility Training,Transfer Training,Gait Training, Therapeutic Exercise,Balance Retraining,Post Op Education, Discharge Planning,Hot or Cold Pack,Neuromuscular Re-ed, Coordination Retraining,Manual Therapy Other Recommendations and Next Treatment transfers, ambulation Focus Recommendations To Nursing Amount of Assist Needed 2 Person Assist Discharge Recommendations PT Discharge Recommendations SNF Rehab
--- NOTE | 2019-08-14 10:39 | PC.NURSE ---
Patient's was at bedside, patient had finally fallen asleep. agrees not to wake him at this time. Will give AM meds and breakfast this morning once ready to get up. Continue to follow.
[2019-08-14] MEDS: ASCORBIC ACID 500 MG TABLET PO ×2 (10:45→20:50)
[2019-08-14] MEDS: ASPIRIN EC 81 MG TABLET PO (10:45)
[2019-08-14] MEDS: buPROPion SR 150 MG TAB PO ×2 (10:45→20:50)
[2019-08-14] MEDS: CELECOXIB 200 MG CAPSULE PO ×2 (10:46→20:50)
[2019-08-14] MEDS: TAMSULOSIN 0.4 MG CAPSULE PO (10:46)
[2019-08-14] MEDS: DOCUSATE 100 MG CAPSULE PO ×2 (10:46→20:50)
[2019-08-14] MEDS: SODIUM CHLORIDE 1,000 MG TABLET 1000 MG PO ×2 (10:47→20:51)
[2019-08-14] MEDS: MAGNESIUM CHLORIDE 64 MG TABLET PO ×2 (10:47→20:51)
--- NOTE | 2019-08-14 10:49 | P.PN_ITS ---
Subjective Subjective Date Patient Seen: 08/14/19 Time Patient Seen: 10:49 Interval history: Patient is status post two stage lumbar fusion with Dr. Griffin. He has a past medical history of hypertension, hyperlipidemia, probable dementia (being seen by a neurologist but not formally diagnosed per ), possible CAD (reports minor CT in the past with angioplasty only), and prior PUD. Yesterday he received 1 unit PRBCs, and repeat H&H following was 7.7. Hospital consult yesterday for evaluation of the patient given his medical history, hypotension, and anemia. Patient is doing much better this morning. He was able to get to a bedside chair with mod assist. His blood pressure is responding to him mobilizing. Last night he had issues with urine output with the Mack in. Nursing was able to reposition and 900 cc of urine output. Exam Vital Signs (past 8 hours): - 08/14/19 04:42 08/14/19 09:00 08/14/19 09:45 Temperature 98.9 F 98.6 F Pulse Rate 96 H 103 H 88 Respiratory Rate 16 16 16 Blood Pressure 142/75 H 141/70 H Pulse Oximetry 97 94 Oxygen Delivery Method Room Air Oxygen Flow Rate 0 Narrative Exam Narrative: Patient is sitting in bedside chair in no acute distress. Dressing on back is CDI. Calves are soft, compressible, nontender bilaterally. Mack in place. He is able to actively dorsiflex and plantar flex. Objective Labs Result Diagrams: 08/14/19 05:10 08/13/19 05:37 Labs: Laboratory Results - last 24 hr 08/12/19 08/13/19 08/13/19 06:04 05:37 14:20 WBC 7.6 RBC 2.45 L Hgb 7.7 L Hct 22.3 L MCV 91.2 MCH 31.3 MCHC 34.3 RDW 13.8 Plt Count 235 Neut % (Auto) 59.0 Lymph % (Auto) 27.5 [place] % (Auto) 9.7 Eos % (Auto) 3.3 Baso % (Auto) 0.5 Neut # (Auto) 4500 Lymph # (Auto) 2100 [place] # (Auto) 700 Eos # (Auto) 200 Baso # (Auto) 0 Sodium 133 L Potassium 4.5 Chloride 100 Carbon Dioxide 27 BUN 17 Creatinine 0.90 Estimated GFR > 60.0 BUN/Creatinine Ratio 18.9 Glucose 95 Calcium 8.6 Total Bilirubin 0.4 AST 42 ALT 21 Alkaline Phosphatase 56 Total Protein 4.5 L Albumin 2.3 L Globulin 2.2 Albumin/Globulin Ratio 1.0 Crossmatch See Detail 08/14/19 05:10 WBC RBC Hgb 7.6 L Hct 21.4 L MCV MCH MCHC RDW Plt Count Neut % (Auto) Lymph % (Auto) [place] % (Auto) Eos % (Auto) Baso % (Auto) Neut # (Auto) Lymph # (Auto) [place] # (Auto) Eos # (Auto) Baso # (Auto) Sodium Potassium Chloride Carbon Dioxide BUN Creatinine Estimated GFR BUN/Creatinine Ratio Glucose Calcium Total Bilirubin AST ALT Alkaline Phosphatase Total Protein Albumin Globulin Albumin/Globulin Ratio Crossmatch Assessment & Plan Post-op Assessment and plan (1) SIADH (syndrome of inappropriate ADH production): (2) S/P lumbar fusion: (3) Enlarged prostate: (4) History of CT (myocardial infarction): (5) Hypertension: Postoperative Procedures: Procedures Operation Date: 08/10/19 07:45 Actual Procedures Side Surgeon p T1- L1, L3-L5 anterior instrumented fusion and L5S1 posterior instrumented fusion Franklin Griffin MD Operation Date: 08/12/19 11:15 Actual Procedures Side Surgeon p T10-S1 posterior instrumented fusion Franklin Griffin MD Patient had significant issues with Mack last night, and with repositioning of Mack there was 900 cc of urine output. Started patient on Flomax today given history of prostate cancer. He has started to move more this morning for the 1st time since surgery. Plan will be to remove Mack tomorrow morning. Continue sodium supplementation for SIADH treatment that patient had preoperati silviay. Patient's blood pressure is significantly improved today, will restart on home lisinopril. We will continue to hold metoprolol for another few days. We will continue to monitor H&H, and sodium will be rechecked tomorrow. At this time he is asymptomatic. Once patient is medically stable, and mobilizing will have a better plan for home versus SNF.
[2019-08-14] MEDS: LISINOPRIL 20 MG TABLET 40 MG PO (11:08)
--- NOTE | 2019-08-14 12:15 | CM.DPC ---
DCP Cont: Met with patient in room, also present. Introduced self and role. Patient was sitting up in his chair next to his bed. Placed name of this naval surface fire support planner on white board in room, and let family know that this casey saw operator is available for resources. Patient had transfusion yesterday. Has not yet worked with P.T. According to , it took two people to transfer patient into his chair from his bed. 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 Mentioned potential for possible fci, and opened to this idea if physical therapy recommends it. Let them both know that this would entail a Hernández authorization, and that this would also depend on P.T. notes. Asked both of them that if he needed fci before going home, if they had a preference. Stated, no preference. At this time, will see what P.T. states. P: DCP to follow closely. Will consult with P.T. after working with patient and note if he will need skilled before returning home. Will send over P.T. notes if this is the case. Sakina Squires RN/Digital Tech
--- NOTE | 2019-08-14 14:38 | PC.NURSE ---
Allevyn dressing to stage 2 wound on right hip changed, area underneath pink. Cleansed with normal saline and small allevyn gentle border dressing applied.
--- NOTE | 2019-08-14 15:03 | PT.IPTN ---
Current Diagnoses Syndrome of inappropriate secretion of antidiuretic hormone (08/10/19) Essential (primary) hypertension (08/10/19) Old myocardial infarction (08/10/19) Other forms of scoliosis, thoracolumbar region (08/10/19) Spinal stenosis, lumbar region with neurogenic claudication (08/10/19) Benign prostatic hyperplasia without lower urinary tract symptoms (08/10/19) Arthrodesis status (08/10/19) Surgery Performed Operation Date: 08/10/19 07:45 Actual Procedures p T1- L1, L3-L5 anterior instrumented fusion and L5S1 posterior instrumented fusion - Franklin Griffin MD Operation Date: 08/12/19 11:15 Actual Procedures p T10-S1 posterior instrumented fusion - Franklin Griffin MD Physical Therapy Treatment Note M2 PT-IP Current Condition Start: 08/11/19 12:07 Freq: NEEDED Status: Active Protocol: Document 08/14/19 10:32 AB (Rec: 08/14/19 12:24 AB [id number]) Physical Therapy Current Condition Current Condition Evaluation Date 08/11/19 Treatment Diagnosis T10-S1 post. fusion; T12 - L5 anterior fusion; difficulty in walking Onset Date 08/10/19 Precautions Lumbar Precautions Log Roll,No Twisting,Limit Bending,Lifting Restriction of 10 lbs,Gait Belt above Incisional Area Other Precautions falls M3 PT-IP Subjective Start: 08/11/19 12:07 Freq: NEEDED Status: Active Protocol: Document 08/14/19 15:03 AB (Rec: 08/14/19 15:59 AB [id number]) Subjective Physical Therapy Visit Type Type Treatment Note Visit Start Time 15:03 Visit Stop Time 15:24 Total Visit Minutes 21 Number of FOOTWEAR MACHINERY INSTRUCTOR Visits 0 Physical Therapy Visit Comments Patient Comments pt asleep but woke up for PT. pt does not know where he is and has to be reoriented to place and situation Therapy Pain Assessment Pain When Pain Assessed At Rest Pain Present Pain Present Pain Reported Location lower back pain Intensity 9 Scale Used Numeric (1 - 10) Pain Behaviors Facial Grimacing,Guarding, Restlessness Pain Management Techniques Distraction,Modification of Treatment,Re-positioning, Timing of Activity with Medications M4 PT-IP Mobility and Gait Start: 08/11/19 12:07 Freq: NEEDED Status: Active Protocol: Document 08/14/19 15:03 AB (Rec: 11/09/19 15:59 AB [id number]) PT-Bed Mobility Assessment Supine to Sit Supine to Sit Maximum Assistance,1 Person Assistance Scooting Scooting to Edge of Bed Maximum Assistance PT-Transfer Assessment Sit to and From Stand Sit to and from Stand Moderate Assistance,Maximum Assistance,2 Person Assistance ,Use of Upper Extremities Equipment Transfer Assistive Device Gait Belt,Front Wheeled Walker Orthotic/Prosthetic Devices or Brace: No Transfers Transfer Destination Bed Transfer Technique Stand Step Pivot Transfer Ability Level of Assist Moderate Assistance,Maximum Assistance,2 Person Assistance ,Use of Upper Extremities Comments Mobility Comments pt completed log roll supine to sit max A and max cues. pt was able to sit on EOB mod to max A and cues. pt is very guarded and c/o pain. BP sitting on EOB: 114/75. pt requested to use the toilet. positioned bedside commode close to pt. pt completed sit to stand mod x 2 to max A x 2 and 2 attempts required to complete task. pt completed step pivot transfer but does not want to sit down to urinate. set up with urinal. pt was able to maintain standing using FWW for support mod A x 2 while assisted with urinal use. pt agreed to sit up on the chair and took ~ 6 steps using FWW mod A x 2 to max A x 2 to get to the chair. positioned pt on the chair. Left pt with OT. Gait Assessment Gait Gait Assistance Required: Moderate Assistance,Maximum Assistance,2 Person Assist Distance (Feet) 2 Able to Maintain Weight Bearing Status Yes During Gait Assistive Devices Assistive Device Gait Belt,Front Wheeled Walker Orthotic/Prosthetic Devices or Brace: No Gait Deviations General Gait Pattern Decreased Stride Length, Decreased Feet Clearance,Step- to Gait Factors Limiting Gait Function Factors Limiting Gait Function Decreased Activity Tolerance, Decreased Strength,Difficulty Following Directions, Incoordination,Limited Range of Motion,Pain,Poor Balance, Poor Safety Awareness Comments Gait Comments pt took steps during transfers using FWW. pt demonstrated unsteadiness, increase L knee flexion during standing and gait. M5 PT-IP Objective Assessments Start: 08/11/19 12:07 Freq: NEEDED Status: Active Protocol: Document 08/14/19 10:32 AB (Rec: 08/14/19 12:24 AB [id number]) Orientation Orientation/Cognition Level of Alertness Confusional State Orientation Name Safety Awareness Decreased Safety Awareness Memory Description Short Term Impaired,Longterm Impaired Gross Range of Motion Lower Extremity ROM Assessment Within Functional Limits Strength Lower Extremity Strength Assessment Bilaterally Impaired Comments Strength Comments RLE: 4-/5 LLE: 3+/5 M6 PT-IP Treatment Start: 08/11/19 12:07 Freq: NEEDED Status: Active Protocol: Document 08/14/19 15:03 AB (Rec: 08/14/19 15:59 AB [id number]) Physical Therapy Treatment Education Education Provided Precautions,Safety M7 PT-IP Assessment and Plan Start: 08/11/19 12:07 Freq: NEEDED Status: Active Protocol: Document 08/14/19 15:03 AB (Rec: 08/14/19 15:59 AB [id number]) PT Summary Assessment and Plan Potential Rehabilitation Potential Fair Summary Impairments Pain,ROM,Strength,Balance, Coordination,Sensation,Tone, Cognition,Bed Mobility, Transfers,Gait,Activity Tolerance Progress Towards Goals Slow Progress due to Pain,Slow Progress due to Activity Tolerance,Slow Progress - Other Assessment Summary pt continues to require 2 person mod to max A and max cues. pt with decrease activity tolerance with c/o increas pain . pt will require SNF rehab to improve strength and mobility. Goals Bed Mobility Goal Contact Guard Assistance Transfer Goal Contact Guard Assistance,Front Wheeled Walker Gait Goal Contact Guard Assistance,Front Wheel Walker Gait Distance 150 Other Goals up/down 3 steps without rails/ SPC/PIPING DESIGNER CGA Days to Meet Goals 10 Frequency of Treatment Frequency Of Treatment Twice a Day Treatment Plan Physical Therapy Treatment Plan Bed Mobility Training,Transfer Training,Gait Training, Therapeutic Exercise,Balance Retraining,Post Op Education, Discharge Planning,Hot or Cold Pack,Neuromuscular Re-ed, Coordination Retraining,Manual Therapy Other Recommendations and Next Treatment transfers, ambulation Focus Recommendations To Nursing Amount of Assist Needed 2 Person Assist Discharge Recommendations PT Discharge Recommendations SNF Rehab
[2019-08-14] MEDS: OXYCODONE IR 5 MG TABLET 10 MG PO ×2 (15:23→19:05)
--- NOTE | 2019-08-14 15:29 | OT.IP.EVAL ---
Current Diagnoses Syndrome of inappropriate secretion of antidiuretic hormone (08/10/19) Essential (primary) hypertension (08/10/19) Old myocardial infarction (08/10/19) Other forms of scoliosis, thoracolumbar region (08/10/19) Spinal stenosis, lumbar region with neurogenic claudication (08/10/19) Benign prostatic hyperplasia without lower urinary tract symptoms (08/10/19) Arthrodesis status (08/10/19) Surgery Performed Operation Date: 08/10/19 07:45 Actual Procedures p T1- L1, L3-L5 anterior instrumented fusion and L5S1 posterior instrumented fusion - Franklin Griffin MD Operation Date: 08/12/19 11:15 Actual Procedures p T10-S1 posterior instrumented fusion - Franklin Griffin MD Past Medical History (Last Updated 07/27/19 @ 14:19 by Marley Parikh RN) Acid reflux (Acute) Arthritis (Acute) Back pain (Acute) Easy bruisability (Acute) Enlarged prostate (Acute) HLD (hyperlipidemia) (Acute) HTN (hypertension) (Acute) Myocardial infarction (Acute ~1993) Pneumonia (Acute) Sciatica (Acute) Ulcer (Acute) Surgical History (Last Updated 07/27/19 @ 14:19 by Marley Parikh RN) H/O vasectomy (Acute) History of total right hip arthroplasty (Acute ~2015) Hx of tonsillectomy (Acute) S/P TURP (Acute ~10/2018) Occupational Therapy Inpatient Evaluation/Re-Eval M1 PT/OT-IP Prior Functional Status Start: 08/11/19 12:07 Freq: NEEDED Status: Active Protocol: Document 08/14/19 15:41 CGR (Rec: 08/14/19 16:10 CGR [email or web address]) Medical Review Prior Functional Status Medical History Reviewed Yes Communication able to make needs known but pt with confusion Mobility and Gait pt stated that he is modified independent with all mobilities and ambulation using SPC Social History Household Members spouse,children Living Arrangements House Number of Floors (Floors) One Floor Number of Stairs To Enter/Railing? 3 steps to enter without rails Home Environment Standard Height Toilet,Tub/ Shower Home Equipment Front Wheel Walker,Straight Cane,Hand Held Shower,Grab Bars In Shower Employment Status Retired Additional Social History Comment Pt lives with his who is his primary pharmaceutical sales representative. M2 OT-IP Current Condition Start: 08/11/19 09:28 Freq: Status: Active Protocol: Document 08/14/19 15:41 CGR (Rec: 08/14/19 16:10 CGR [email or web address]) Occupational Therapy Current Condition Current Condition Evaluation Date 08/14/19 Treatment Diagnosis 2 part anterior T12-L5 and posterior T10-S1 fusion. Diagnosis Onset Date 08/10/19 Post Operative Precautions Lumbar Precautions Log Roll,No Twisting,Limit Bending,Lifting Restriction of 10 lbs,Gait Belt above Incisional Area M3 OT- IP Subjective and Pain Start: 08/11/19 09:28 Freq: Status: Active Protocol: Document 08/14/19 15:41 CGR (Rec: 08/14/19 16:10 CGR [email or web address]) OT- Subjective Occupational Therapy Visit Type Type Initial Evaluation Visit Start Time 15:03 Visit Stop Time 15:29 Total Visit Minutes 26 OT Pain Assessment Pain When Pain Assessed At Rest Pain Present Pain Present Pain Reported Location lower back pain Intensity 9 Scale Used Numeric (1 - 10) Management Techniques Re-positioning,Timing of Activity with Medications M4 OT- IP ADL's Start: 08/11/19 09:28 Freq: Status: Active Protocol: Document 08/14/19 15:41 CGR (Rec: 08/14/19 16:10 CGR [email or web address]) OT [id number] Comments OT Self-Feeding Comments Not meal time but per nursing, pt did not eat lunch d/t no appetite. OT ADL-Grooming General Evaluation Grooming Ability Minimal Assistance Areas Needing Assistance Retrieving/Set-up of Grooming Items,Combing/Brushing Hair, Face Washing Comments OT Grooming Comments seated in chair OT ADL-Oral Care General Eval Oral Care Ability Minimal Assistance Areas of Assistance Brushing Teeth,Retrieving/Set- Up of Items Comments Oral Care Comments seated in chair OT ADL-Dressing Comments OT Dressing Comments Not performed on this date. OT ADL-Toileting General Evaluation Toileting Ability Maximum Assistance Areas Needing Assistance Manage Clothing Devices Toileting Assistive Devices Urinal Comments OT Toileting Comments Pt urinated standing with assist for doffing and onning brief and for holding of urinal. OT ADL-Bathing Comments OT Bathing Comments Not performed in this session. M5 OT- IP IADL's Start: 08/11/19 09:28 Freq: Status: Active Protocol: Document 08/14/19 15:41 CGR (Rec: 08/14/19 16:10 CGR [email or web address]) OT-Instrumental Activities of Daily Living Deficits IADL Deficits Identified Deficits Home Safety Awareness Awareness of Need for Assistance at Home Decreased Awareness Ability to Problem Solve Emergency Unable to Problem Solve Situations Medication Management Medication Management Caregiver Administers Money Management Money Management Caregiver Provides Assistance Meal Preparation Meal Preparation Caregiver Provides Assist Local Sales Associate Local Sales Associate Caregiver Provides Assist Driving Driving Comments Pt does not drive. M6 OT- IP Functional Cognition Start: 08/11/19 09:28 Freq: Status: Active Protocol: Document 08/14/19 15:41 CGR (Rec: 08/14/19 16:10 CGR [email or web address]) Cognitive Factors Limiting Selfcare Function Cognitive Ability Level of Alertness Alert Patient Orientation Name,Age,Birthday,Month,Date, Year,Day of Week,Place, Situation Attention Span Ability Unable to Focus Ability to Follow Commands Able to Follow One Step Commands with Increased Time, Able to Follow One Step Commands with Repetition Memory Description Immediate Impaired,Short Term Impaired,Working Impaired Safety Awareness Decreased Recall of Precautions,Decreased Ability to Apply Precautions, Underestimates Need for Assistance Problem Solving Ability Unable to Identify Errors, Needs Assist to Identify Solutions Cognitive Comments Cognitive Assessment Comments Pt with baseline dementia OT- Vision and Hearing OT- Hearing Assessment OT- Hearing Assessment WFL OT- Vision Assessment Visual Acuity Glasses All The Time Visual Attentiveness WFL Occular Pursuits WFL Visual Convergence WFL Visual [place] WFL M7 OT- IP Mobility and Balance Start: 08/11/19 09:28 Freq: Status: Active Protocol: Document 08/14/19 15:41 CGR (Rec: 08/14/19 16:10 CGR [email or web address]) OT- Bed Mobility Assessment Rolling Type of Rolling Log Rolling,Roll to Left Level of Assistance Maximum Assistance Supine to Sit Supine to Sit Assist Maximum Assistance Scooting Scooting to Edge of Bed Maximum Assistance OT-Transfer Assessment Sit to and From Stand Sit to and from Stand Moderate Assistance,Maximum Assistance,2 Person Assistance Transfers Transfer Ability Moderate Assistance,Maximum Assistance,2 Person Assistance Technique Transfer Destination Bed,Chair Transfer Technique Stand Step Pivot Devices Transfer Assistive Devices Gait Belt,Front Wheeled Walker Comments Mobility Comments Pt needed significant assist for sit to stand from bed and transfer to chair. Pt misunderstood directions to sit on BSC for toileting and insisted on standing for urination. OT- Balance Assessment Sitting Balance and Reactions Static Sitting Balance Ability Fair Dynamic Sitting Balance Ability Poor M8 OT- IP Objective Assessments Start: 08/11/19 09:28 Freq: Status: Active Protocol: Document 08/14/19 15:41 CGR (Rec: 08/14/19 16:10 CGR [email or web address]) OT Gross Range of Motion Upper Extremity Range of Motion Assessment Within Functional Limits OT Strength Upper Extremity Strength Assessment Within Functional Limits Comments Strength Comments grossly tested at 4/5 OT- Coordination Assessment Upper Extremity Finger to Nose Test Within Functional Limits Finger Tapping Test Within Functional Limits OT-Muscle Tone Assessment Muscle Tone WNL Yes OT Sensation Assessment Edema Edema Absent M9 OT- IP Assessment and Plan Start: 08/11/19 09:28 Freq: Status: Active Protocol: Document 08/14/19 15:41 CGR (Rec: 08/14/19 16:10 CGR [email or web address]) OT Summary Assessment and Plan Potential Rehabilitation Potential Good Analytic Complexity at Evaluation Moderate Summary OT Impairments Pain,Strength,Balance, Functional Cognition, Functional Mobility,Self- Feeding,Grooming,Dressing, Toileting,Bathing,Toilet Transfers,Shower Transfers Progress Towards Goals Slow Progress due to Pain Assessment Summary Pt presents as a moderate complexity evaluation. Pt with baseline dementia that is impacting his ability to recall back precautions. Pt was unable to state where he was or why he was in the hospital. Pt will benefit from continued therapy services. Recommendation at this time is for SNF as pt would not be safe for transfer home with . Pt will continue to benefit from OT services. Goals Self-Feeding Goal Independent Grooming Goal Independent Dressing Goal Standby Assistance Toileting Goal Independent Bathing Goal Independent Toilet Transfer Goal Independent Shower Transfer Goal Independent Frequency of Treatment Frequency Of Treatment Once a Day Treatment Plan OT Treatment Plan ADL Training,Functional Cognition Training,Functional Mobility,Patient/Family Education,Discharge Planning Other Treatment Recommendations and Next ADLs standing as able. Treatment Focus Discharge Recommendations OT Discharge Recommendations SNF Rehab Home Equipment Needs TBD
--- NOTE | 2019-08-14 19:44 | PC.NURSE ---
Pain controlled with oxycodone 10mg. denied any nausea, chest pain, sob or dizziness. 2pa-transfer only. feet scds on. call light in reach. bed alarm active. pt ripped off his blood band. taped it back together and placed it around his wrist. blood band number verified. notified Lab, they said they will include it in their next lab draw so he can get a new blood band.
[2019-08-14] MEDS: GABAPENTIN 300 MG CAPSULE PO (20:50)
[2019-08-14] MEDS: SIMVASTATIN 40 MG TABLET PO (20:50)
[2019-08-14] MEDS: SENNOSIDES 8.6 MG TABLET 17.2 MG PO (20:50)
[2019-08-14] MEDS: SODIUM CHLORIDE 0.9% FLUSH 10 ML IV (21:08)
[2019-08-15] VITALS (8 sets, daily range): BP systolic 108–135; BP diastolic 70–78; PULSE 96–147; RESP 12–18; TEMP 36.4–37.7; O2SAT 93–98
[2019-08-15] MEDS: OXYCODONE IR 5 MG TABLET PO ×4 (00:34→23:26)
[2019-08-15] MEDS: OXYCODONE IR 5 MG TABLET 10 MG PO ×2 (05:37→13:28)
[2019-08-15] MEDS: MAGNESIUM HYDROXIDE 30 ML UDC PO (06:05)
--- NOTE | 2019-08-15 06:12 | PC.NURSE ---
Pt. was not completely disimpacted yesterday, because he C/O discomfort. Still C/O constipation, MOM admin. & warm prune juice given. Will report to day RN. & monitor.
[2019-08-15 06:17] LABS: Hematocrit 21.5 % (41-53); Hemoglobin 7.4 g/dL (13.5-17.5); Mean Corpuscular HGB Conc 34.3 % (30-36); Mean Corpuscular Hemoglobin 30.9 PG (26-34); Mean Corpuscular Volume 90.1 fL (80-100); Platelet Count 263 X10^3/uL (150-400); Red Blood Cell Count 2.39 X10^6/uL (4.5-5.9); Red Cell Distribution Width 13.9 % (11.6-14.8); White Blood Cell Count 6.4 X10^3/uL (4.5-11.0)
[2019-08-15] MEDS: PANTOPRAZOLE 40 MG TABLET PO (06:20)
[2019-08-15 06:25] LABS: Blood Urea Nitrogen 16 mg/dL (9-20); Calcium 8.3 mg/dL (8.4-10.2); Carbon Dioxide 27 mmol/L (22-32); Chloride 101 mmol/L (98-107); Estimated Glomerular Filt Rate > 60.0 mL/min (>60); Glucose 97 mg/dL (80-110); HEMOLYSIS < 15 (0-50); Potassium 3.8 mmol/L (3.4-5.1); Sodium 134 mmol/L (137-145)
[2019-08-15] MEDS: ACETAMINOPHEN 325 MG TABLET 975 MG PO (08:50)
[2019-08-15] MEDS: CELECOXIB 200 MG CAPSULE PO ×2 (08:50→21:54)
[2019-08-15] MEDS: TAMSULOSIN 0.4 MG CAPSULE PO (08:51)
[2019-08-15] MEDS: DOCUSATE 100 MG CAPSULE PO ×2 (08:51→21:54)
[2019-08-15] MEDS: BISACODYL 10 MG SUPP PR (08:51)
[2019-08-15] MEDS: buPROPion SR 150 MG TAB PO ×2 (08:51→21:54)
[2019-08-15] MEDS: ASPIRIN EC 81 MG TABLET PO (08:51)
[2019-08-15] MEDS: ASCORBIC ACID 500 MG TABLET PO ×2 (08:51→21:54)
[2019-08-15] MEDS: MAGNESIUM CHLORIDE 64 MG TABLET PO ×2 (08:52→21:54)
[2019-08-15] MEDS: SODIUM CHLORIDE 1,000 MG TABLET 1000 MG PO ×2 (08:52→21:55)
--- NOTE | 2019-08-15 08:57 | PM.PNPO.1 ---
Subjective Subjective Date Patient Seen: 08/15/19 Time Patient Seen: 08:57 Interval history: Patient is status post two stage lumbar fusion with Dr. Clay. He has a past medical history of hypertension, hyperlipidemia, probable dementia (being seen by a neurologist but not formally diagnosed per ), possible CAD (reports minor WA in the past with angioplasty only), and prior PUD. Postop 2nd stage he received 1 unit PRBCs, and repeat H&H following was 7.7. This same it is 7.4. Had Hospitalist consult for evaluation of the patient given his medical history, hypotension, and anemia. Appreciate hospitalist recommendations. If currently signed off but are available for any additional issues. Patient is doing much better this morning. Still has quite a bit of back pain with mobilizing and requires 2 person assist. Vital signs are stable. Does feel quite weak. Mack was removed last night the patient has been voiding in the urinal without problems. Exam Vital Signs (past 8 hours): - 08/15/19 05:39 08/15/19 08:00 Temperature 98.6 F 99.5 F Pulse Rate 100 H 97 H Respiratory Rate 16 12 Blood Pressure 123/75 133/78 Pulse Oximetry 98 Oxygen Delivery Method Room Air Oxygen Flow Rate 0 Narrative Exam Narrative: No acute distress. No increased respiratory effort Lying in bed. Eating breakfast. Dressing in place. Calves are soft. SCDs on the feet. Demonstrates active dorsiflexion plantar flexion bilateral ankles. Objective Labs Result Diagrams: 08/15/19 06:00 08/15/19 06:00 Labs: Laboratory Results - last 24 hr 08/15/19 08/15/19 06:00 06:00 WBC 6.4 RBC 2.39 L Hgb 7.4 L Hct 21.5 L MCV 90.1 MCH 30.9 MCHC 34.3 RDW 13.9 Plt Count 263 Sodium 134 L Potassium 3.8 Chloride 101 Carbon Dioxide 27 BUN 16 Creatinine 1.00 Estimated GFR > 60.0 BUN/Creatinine Ratio 16.0 Glucose 97 Calcium 8.3 L Assessment & Plan Post-op Postoperative Procedures: Procedures Operation Date: 08/10/19 07:45 Actual Procedures Side Surgeon p T1- L1, L3-L5 anterior instrumented fusion and L5S1 posterior instrumented fusion Franklin Clay MD Operation Date: 08/12/19 11:15 Actual Procedures Side Surgeon p T10-S1 posterior instrumented fusion Franklin Clay MD Status post two-stage lumbar fusion with Dr. clay. Vital signs stable this morning. Will continue to monitor his acute blood loss anemia. If it drops below 7 or becomes symptomatic the hypotensive her tachycardic will consider additional transfusion. Would also get stool guaiac at that time. Right now patient is having constipation therefore will hold off on administering iron until constipation is resolving. Will continue to work on pain control and mobilization. Likely assisted discharge once medically stable. Continue inpatient admission Quality VTE Deep Vein Thrombosis/Pulmonary Embolism Present on Admission: No
--- NOTE | 2019-08-15 09:49 | PC.NURSE ---
Addendum entered by Radha Segovia R.N. 08/15/19 13:36: patient reports pain improved to 3-4/10 after flexeril given. was able to ambulate in morrow w/ physical therapy today. Addendum entered by Radha Segovia R.N. 08/15/19 11:59: DISCUSSED PATIENT'S PAIN LEVELS AND COMMENT ABOUT WANTING TO R/T PAIN. NEW ORDERS RECEIVED. Addendum entered by Radha Segovia R.N. 08/15/19 10:37: bladder scanned with 21cc's noted. no evidence of urinary retention. abd soft and non-tender after bm this am. Original Note: PATIENT CONFUSED. STATES SO DO THEY KNOW WHAT'S WRONG WITH ME? WHY MY BACK IS HURTING? RE-ORIENTED TO SITUATION. OH, THAT'S RIGHT, THEY SPLIT ME OPEN.. PATIENT AGREED TO SUPPOSITORY, C/O ABD PAIN AND REFUSED BREAKFAST. PER REPORT, PATIENT HAS BEEN CONSTIPATED. TENDER OVER ABD. PATIENT AGREED HE NEEDED TO URINATE, STOOD AT BEDSIDE 2P ASSIST TO VOID, ONLY VOIDED ABOUT 75CC'S. MAY NEED TO BLADDER SCAN. 30MIN LATER PATIENT REPORTS NEED TO HAVE BM. ASSISTED TO BR 2P W/ WALKER AND GAIT BELT. HAD LARGE FORMED SOFT BM IN MULTIPLE FRAGMENTS. VOIDED SM AMT IN TOILET. REPORTS HE WANTS TO WHEN HE IS ACTIVE. I'VE NEVER HAD PAIN LIKE THIS IN MY LIFE. ASSISTED BACK TO RECLINER, ADMINISTERED ICE PACK AND 10MG OXYCODONE. WILL MONITOR FOR AFFECT. CHAIR ALARM IN PLACE. TURNED ON TV FOR DISTRACTION. RE-INFORCED USE OF CALL LIGHT FOR NEEDS. MONITOR CLOSELY.
--- NOTE | 2019-08-15 10:17 | PT.IPTN ---
Current Diagnoses Syndrome of inappropriate secretion of antidiuretic hormone (08/10/19) Essential (primary) hypertension (08/10/19) Old myocardial infarction (08/10/19) Other forms of scoliosis, thoracolumbar region (08/10/19) Spinal stenosis, lumbar region with neurogenic claudication (08/10/19) Benign prostatic hyperplasia without lower urinary tract symptoms (08/10/19) Arthrodesis status (08/10/19) Surgery Performed Operation Date: 08/10/19 07:45 Actual Procedures p T1- L1, L3-L5 anterior instrumented fusion and L5S1 posterior instrumented fusion - Franklin Griffin MD Operation Date: 08/12/19 11:15 Actual Procedures p T10-S1 posterior instrumented fusion - Franklin Griffin MD Physical Therapy Treatment Note M2 PT-IP Current Condition Start: 08/11/19 12:07 Freq: NEEDED Status: Active Protocol: Document 08/14/19 10:32 AB (Rec: 08/14/19 12:24 AB [id number]) Physical Therapy Current Condition Current Condition Evaluation Date 08/11/19 Treatment Diagnosis T10-S1 post. fusion; T12 - L5 anterior fusion; difficulty in walking Onset Date 08/10/19 Precautions Lumbar Precautions Log Roll,No Twisting,Limit Bending,Lifting Restriction of 10 lbs,Gait Belt above Incisional Area Other Precautions falls M3 PT-IP Subjective Start: 08/11/19 12:07 Freq: NEEDED Status: Active Protocol: Document 08/15/19 10:02 CLB (Rec: 08/15/19 10:59 CLB [id number]) Subjective Physical Therapy Visit Type Type Treatment Note Visit Start Time 10:02 Visit Stop Time 10:17 Total Visit Minutes 15 Notes CUPOLA TENDER HELPER present to assist Number of FLOAT OPERATOR Visits 1 Physical Therapy Visit Comments Patient Comments Pt wanting to get back into bed. Therapy Pain Assessment Pain When Pain Assessed During Mobility Pain Present Pain Present Pain Reported Location lower back pain Intensity 7 Scale Used Numeric (1 - 10) Pain Behaviors Facial Grimacing,Guarding, Restlessness Pain Management Techniques Distraction,Modification of Treatment,Re-positioning, Timing of Activity with Medications M4 PT-IP Mobility and Gait Start: 08/11/19 12:07 Freq: NEEDED Status: Active Protocol: Document 08/15/19 10:02 CLB (Rec: 08/15/19 10:59 CLB [id number]) PT-Bed Mobility Assessment Rolling Type of Rolling Log Rolling Level of Assist Maximal Assistance Sit to Supine Sit to Supine Maximum Assistance,2 Person Assistance PT-Transfer Assessment Sit to and From Stand Sit to and from Stand Moderate Assistance,2 Person Assistance,Use of Upper Extremities Equipment Transfer Assistive Device Gait Belt,Front Wheeled Walker Orthotic/Prosthetic Devices or Brace: No Transfers Transfer Destination Bed,Bedside Commode Transfer Ability Level of Assist Moderate Assistance,2 Person Assistance,Use of Upper Extremities Comments Mobility Comments Pt required cues for sit-stand and Mod A x2, Pt stood and [place] [facility] [place] increased time and max cues for sequencing with assist with walker management. Pt had BM and CUPOLA TENDER HELPER present to perform pericare. Gait Assessment Comments Gait Comments unable due to pain. M5 PT-IP Objective Assessments Start: 08/11/19 12:07 Freq: NEEDED Status: Active Protocol: Document 08/14/19 10:32 AB (Rec: 08/14/19 12:24 AB [id number]) Orientation Orientation/Cognition Level of Alertness Confusional State Orientation Name Safety Awareness Decreased Safety Awareness Memory Description Short Term Impaired,Bell Neck Hammerer Impaired Gross Range of Motion Lower Extremity ROM Assessment Within Functional Limits Strength Lower Extremity Strength Assessment Bilaterally Impaired Comments Strength Comments RLE: 4-/5 LLE: 3+/5 M6 PT-IP Treatment Start: 08/11/19 12:07 Freq: NEEDED Status: Active Protocol: Document 08/14/19 15:03 AB (Rec: 08/14/19 15:59 AB [id number]) Physical Therapy Treatment Education Education Provided Precautions,Safety M7 PT-IP Assessment and Plan Start: 08/11/19 12:07 Freq: NEEDED Status: Active Protocol: Document 08/15/19 10:02 CLB (Rec: 08/15/19 10:59 CLB [id number]) PT Summary Assessment and Plan Potential Rehabilitation Potential Fair Summary Impairments Pain,ROM,Strength,Balance, Coordination,Sensation,Tone, Cognition,Bed Mobility, Transfers,Gait,Activity Tolerance Progress Towards Goals Slow Progress due to Pain,Slow Progress due to Activity Tolerance,Slow Progress - Other Assessment Summary Pt requires Mod-Max A x2 for all mobility with max cues for sequencing sit<>stand, reverse log roll during sit- supine. Left pt in bed with alarm on, call light within reach, bilateral SCD's on and CUPOLA TENDER HELPER present. Goals Bed Mobility Goal Contact Guard Assistance Transfer Goal Contact Guard Assistance,Front Wheeled Walker Gait Goal Contact Guard Assistance,Front Wheel Walker Gait Distance 150 Other Goals up/down 3 steps without rails/ SPC/MICROWAVE ENGINEER CGA Days to Meet Goals 10 Frequency of Treatment Frequency Of Treatment Twice a Day Treatment Plan Physical Therapy Treatment Plan Bed Mobility Training,Transfer Training,Gait Training, Therapeutic Exercise,Balance Retraining,Post Op Education, Discharge Planning,Hot or Cold Pack,Neuromuscular Re-ed, Coordination Retraining,Manual Therapy Other Recommendations and Next Treatment transfers, ambulation as able Focus Recommendations To Nursing Amount of Assist Needed 2 Person Assist Discharge Recommendations PT Discharge Recommendations SNF Rehab
--- NOTE | 2019-08-15 10:54 | CM.DPC ---
Addendum entered by Sakina Squires R.N. 08/15/19 15:03: Left a message with Ileana at [facility] to ensure that all information sent will be reviewed. Patient could be ready for discharge tomorrow, and reiterated this to Ileana via her voice mail. Addendum entered by Sakina Squires R.N. 08/15/19 12:35: Faxed latest physical therapy note from today to [facility]. Original Note: DCP Cont: P.T. is recommending long term, is currently a two person transferred, and surgeon's latest note recommends long term as well. Gave patient a Medicare Choice List, had spoken to about patient going to long term yesterday, but patient does not remember. had stated, no preference, patient is wanting to be closer to [facility]. Went ahead and called [facility], regular case resource manager is Edilia Haney, but Ileana is on today for her. Ileana asked what discharge plan was originally, let her know that this case resource manager would sent information over. DC plan from orthopedic was home with , or skilled post-op. Ileana stated that it will have to be reviewed by their provider. Sent her over yesterday's P.T and O.T note, history and physical mentioning discharge plan, med sheets, and prog note from today. When today's P.T. notes are in, will send them over. Went ahead and initiated two referrals, discussed with Carl at [facility], who requested clinicals be sent over. He stated that they should have availabilities tomorrow. Spoke to Israel at [facility], stated, there is a lot of interest for tomorrow, but nothing tentative yet, but do have some beds available. Stated that he is hopeful that they will have beds tomorrow. P: Will send over latest P.T. from today when completed. Patient could potentially be discharged tomorrow. Let [facility] know this, as well as [facility] and Melinda Ewing.] Saknia Squires, RN/Program Development Manager
[2019-08-15] MEDS: CYCLOBENZAPRINE 10 MG TABLET PO ×2 (11:23→21:54)
[2019-08-15] MEDS: SODIUM CHLORIDE 0.9% FLUSH 10 ML IV ×2 (11:24→21:56)
--- NOTE | 2019-08-15 12:44 | PT.IPTN ---
Current Diagnoses Syndrome of inappropriate secretion of antidiuretic hormone (08/10/19) Essential (primary) hypertension (08/10/19) Old myocardial infarction (08/10/19) Other forms of scoliosis, thoracolumbar region (08/10/19) Spinal stenosis, lumbar region with neurogenic claudication (08/10/19) Benign prostatic hyperplasia without lower urinary tract symptoms (08/10/19) Arthrodesis status (08/10/19) Surgery Performed Operation Date: 08/10/19 07:45 Actual Procedures p T1- L1, L3-L5 anterior instrumented fusion and L5S1 posterior instrumented fusion - Franklin Griffin MD Operation Date: 08/12/19 11:15 Actual Procedures p T10-S1 posterior instrumented fusion - Franklin Griffin MD Physical Therapy Treatment Note M2 PT-IP Current Condition Start: 08/11/19 12:07 Freq: NEEDED Status: Active Protocol: Document 08/14/19 10:32 AB (Rec: 08/14/19 12:24 AB [id number]) Physical Therapy Current Condition Current Condition Evaluation Date 08/11/19 Treatment Diagnosis T10-S1 post. fusion; T12 - L5 anterior fusion; difficulty in walking Onset Date 08/10/19 Precautions Lumbar Precautions Log Roll,No Twisting,Limit Bending,Lifting Restriction of 10 lbs,Gait Belt above Incisional Area Other Precautions falls M3 PT-IP Subjective Start: 08/11/19 12:07 Freq: NEEDED Status: Active Protocol: Document 08/15/19 12:35 AW (Rec: 08/15/19 12:44 AW [id number]) Subjective Physical Therapy Visit Type Type Treatment Note Visit Start Time 12:15 Visit Stop Time 12:31 Total Visit Minutes 16 Notes visiting at bedside throughout treatment Physical Therapy Visit Comments Patient Comments Pt in a great deal of pain but willing to work with therapy. Therapy Pain Assessment Pain When Pain Assessed During Mobility Pain Present Pain Present Pain Reported Location lower back pain Intensity 7 Scale Used Numeric (1 - 10) Pain Behaviors Facial Grimacing,Guarding, Restlessness Pain Management Techniques Distraction,Modification of Treatment,Re-positioning, Timing of Activity with Medications M4 PT-IP Mobility and Gait Start: 08/11/19 12:07 Freq: NEEDED Status: Active Protocol: Document 08/15/19 12:35 AW (Rec: 08/15/19 12:44 AW [id number]) PT-Bed Mobility Assessment Rolling Type of Rolling Log Rolling Level of Assist Moderate Assistance Sit to Supine Sit to Supine Moderate Assistance,1 Person Assistance PT-Transfer Assessment Sit to and From Stand Sit to and from Stand Moderate Assistance,1 Person Assistance,Use of Upper Extremities Equipment Transfer Assistive Device Gait Belt,Front Wheeled Walker Orthotic/Prosthetic Devices or Brace: No Transfers Transfer Destination Bed Transfer Ability Level of Assist Moderate Assistance,1 Person Assistance,Use of Upper Extremities Comments Mobility Comments Pt requried mod A x 1 for scooting to edge of chair and sit to stand using FWW as well as cues for walker management . Pt exhibits impulsivity, moving quickly and with poor safety awareness, especially regarding safe use of FWW. Gait Assessment Gait Gait Assistance Required: Contact Guard Assist,Minimum Assistance,1 Person Assist Distance (Feet) 50 Able to Maintain Weight Bearing Status Yes During Gait Assistive Devices Assistive Device Gait Belt,Front Wheeled Walker Orthotic/Prosthetic Devices or Brace: No Gait Deviations General Gait Pattern Decreased Stride Length, Decreased Feet Clearance,Step- to Gait Factors Limiting Gait Function Factors Limiting Gait Function Decreased Activity Tolerance, Decreased Strength,Difficulty Following Directions, Incoordination,Limited Range of Motion,Pain,Poor Balance, Poor Safety Awareness Comments Gait Comments Pt able to ambulate ~50 feet on level surface using FWW CGA to min A for balance, requiring max cues for safe walker management and for hip extension/posture. M5 PT-IP Objective Assessments Start: 08/11/19 12:07 Freq: NEEDED Status: Active Protocol: Document 08/14/19 10:32 AB (Rec: 08/14/19 12:24 AB [id number]) Orientation Orientation/Cognition Level of Alertness Confusional State Orientation Name Safety Awareness Decreased Safety Awareness Memory Description Short Term Impaired,Sole Rounding Machine Operator Impaired Gross Range of Motion Lower Extremity ROM Assessment Within Functional Limits Strength Lower Extremity Strength Assessment Bilaterally Impaired Comments Strength Comments RLE: 4-/5 LLE: 3+/5 M6 PT-IP Treatment Start: 08/11/19 12:07 Freq: NEEDED Status: Active Protocol: Document 08/14/19 15:03 AB (Rec: 08/14/19 15:59 AB [id number]) Physical Therapy Treatment Education Education Provided Precautions,Safety M7 PT-IP Assessment and Plan Start: 08/11/19 12:07 Freq: NEEDED Status: Active Protocol: Document 08/15/19 12:35 AW (Rec: 08/15/19 12:44 AW [id number]) PT Summary Assessment and Plan Potential Rehabilitation Potential Good Status of Condition at Evaluation Evolving Summary Impairments Pain,ROM,Strength,Balance, Coordination,Sensation,Tone, Cognition,Bed Mobility, Transfers,Gait,Activity Tolerance Progress Towards Goals Slow Progress due to Pain,Slow Progress due to Activity Tolerance Assessment Summary Pt requiring min-mod A x 1 for all mobility at this session. He was unable to recall spinal precautions and required max verbal cues for sequencing and for transfer technique. He is unsafe on his own with FWW and needs cues to avoid rushing mobility. Goals Bed Mobility Goal Contact Guard Assistance Transfer Goal Contact Guard Assistance,Front Wheeled Walker Gait Goal Contact Guard Assistance,Front Wheel Walker Gait Distance 150 Other Goals up/down 3 steps without rails/ SPC/FRONT OFFICE SPECIALIST CGA Days to Meet Goals 10 Frequency of Treatment Frequency Of Treatment Twice a Day Treatment Plan Physical Therapy Treatment Plan Bed Mobility Training,Transfer Training,Gait Training, Therapeutic Exercise,Balance Retraining,Post Op Education, Discharge Planning,Hot or Cold Pack,Neuromuscular Re-ed, Coordination Retraining,Manual Therapy Other Recommendations and Next Treatment transfers, ambulation as able Focus Recommendations To Nursing Amount of Assist Needed 1 Person Assist,2 Person Assist Discharge Recommendations PT Discharge Recommendations SNF Rehab
[2019-08-15] MEDS: FERROUS SULFATE 325 MG TABLET PO (13:30)
--- NOTE | 2019-08-15 16:00 | PC.NURSE ---
Pt wanted to use the bathroom so this DETAIL ASSEMBLER helped him sit up in bed. Gait belt was placed, SCD's removed, socks on and front wheel walker at bedside. Pt tried multiple times to stand but was unable and said, I'm just too tired. I don't feel right. Pt reports an 8/10 pain. Pt was safely helped back to lying down in bed, SCD's applied, bed alarmed with urinal placed nearby. RN notified about changes and pain.
--- NOTE | 2019-08-15 17:12 | PC.NURSE ---
While this NURSING ADMIN was assisting pt with urinal he stated, It urias when I pee. Notified RN.
[2019-08-15] MEDS: HYDROMORPHONE 2 MG TABLET PO (19:06)
[2019-08-15] MEDS: GABAPENTIN 300 MG CAPSULE PO (21:53)
[2019-08-15] MEDS: SIMVASTATIN 40 MG TABLET PO (21:54)
[2019-08-15] MEDS: SENNOSIDES 8.6 MG TABLET 17.2 MG PO (21:54)
--- NOTE | 2019-08-15 23:50 | PC.NURSE ---
Addendum entered by Merari Worley R.N. 08/16/19 06:52: Bandaid came off skin tear on left forearm so covered with Allevyn dressing. Addendum entered by Merari Worley R.N. 08/16/19 04:57: Up to BSC and voided + passed flatus but no stool. States pain is 3/10 at rest but hollering when getting out of bed and states pain is 7/10 with movement; medicated with Oxycodone. Voided 150cc with PVR of 427 Addendum entered by Merari Worley R.N. 08/16/19 02:03: Up to BSC as states he has to poop. Assisted by 2 + walker and did well except is unsteady and complains of 6/10 pain; too early for additional Oxycodone so medicated with 2mg po Dilaudid. Was able to void 400cc urine with PVR of 347cc. Addendum entered by Merari Worley R.N. 08/16/19 00:55: Patient voided 125cc and PVR was 497. Dr Valle informed, see new orders. Original Note: Patient is oriented to self and birthday only. Breath sounds CTA with RA sat of 97%. HRR. Denies nausea. BT present; abdomen is soft. Denies dysuria but noted for past 6 hours has only been voiding in small amounts; will check PVR with next urination. Dressing to back intact with old drainage noted. Dressing to left hip is CDI. Has intact Allevyn dressings to right lateral hip and left forearm. Abrasions to left forearm and left check. Bruising on bilateral UE. Pedal pulses + with good capillary refill; patient does states he has tingling in bilateral feet but also states it was present prior to surgery. Complains of 5/10 pain in back so repositioned, ice pack applied and medicated with Oxycodone; states pain is sharp and feels as though he is being stuck with a knife. Fall risk score is high and bed alarm is activated. Wearing bilateral foot SCD's.
[2019-08-16] VITALS (10 sets, daily range): BP systolic 107–155; BP diastolic 64–87; PULSE 94–113; RESP 16–18; TEMP 36.4–37.6; O2SAT 97–98
[2019-08-16] MEDS: HYDROMORPHONE 2 MG TABLET PO (01:57)
[2019-08-16] MEDS: OXYCODONE IR 5 MG TABLET 10 MG PO ×3 (04:55→18:16)
[2019-08-16] MEDS: PANTOPRAZOLE 40 MG TABLET PO (06:51)
[2019-08-16] MEDS: FERROUS SULFATE 325 MG TABLET PO (09:37)
[2019-08-16] MEDS: CELECOXIB 200 MG CAPSULE PO ×2 (09:37→21:05)
[2019-08-16] MEDS: buPROPion SR 150 MG TAB PO ×2 (09:37→21:05)
[2019-08-16] MEDS: LISINOPRIL 20 MG TABLET 40 MG PO (09:37)
[2019-08-16] MEDS: TAMSULOSIN 0.4 MG CAPSULE PO (09:37)
[2019-08-16] MEDS: DOCUSATE 100 MG CAPSULE PO ×2 (09:37→21:05)
[2019-08-16] MEDS: MAGNESIUM CHLORIDE 64 MG TABLET PO ×2 (09:38→21:06)
[2019-08-16] MEDS: ASCORBIC ACID 500 MG TABLET PO ×2 (09:38→21:05)
[2019-08-16] MEDS: SODIUM CHLORIDE 0.9% FLUSH 10 ML IV ×2 (09:38→21:05)
[2019-08-16] MEDS: SODIUM CHLORIDE 1,000 MG TABLET 1000 MG PO ×2 (09:38→21:06)
[2019-08-16] MEDS: ASPIRIN EC 81 MG TABLET PO (09:38)
--- NOTE | 2019-08-16 09:46 | PT.IPTN ---
Current Diagnoses Syndrome of inappropriate secretion of antidiuretic hormone (08/10/19) Essential (primary) hypertension (08/10/19) Old myocardial infarction (08/10/19) Other forms of scoliosis, thoracolumbar region (08/10/19) Spinal stenosis, lumbar region with neurogenic claudication (08/10/19) Benign prostatic hyperplasia without lower urinary tract symptoms (08/10/19) Arthrodesis status (08/10/19) Surgery Performed Operation Date: 08/10/19 07:45 Actual Procedures p T1- L1, L3-L5 anterior instrumented fusion and L5S1 posterior instrumented fusion - Franklin Griffin MD Operation Date: 08/12/19 11:15 Actual Procedures p T10-S1 posterior instrumented fusion - Franklin Griffin MD Physical Therapy Treatment Note M2 PT-IP Current Condition Start: 08/11/19 12:07 Freq: NEEDED Status: Active Protocol: Document 08/14/19 10:32 AB (Rec: 08/14/19 12:24 AB [id number]) Physical Therapy Current Condition Current Condition Evaluation Date 08/11/19 Treatment Diagnosis T10-S1 post. fusion; T12 - L5 anterior fusion; difficulty in walking Onset Date 08/10/19 Precautions Lumbar Precautions Log Roll,No Twisting,Limit Bending,Lifting Restriction of 10 lbs,Gait Belt above Incisional Area Other Precautions falls M3 PT-IP Subjective Start: 08/11/19 12:07 Freq: NEEDED Status: Active Protocol: Document 08/16/19 09:30 CLB (Rec: 08/16/19 13:02 CLB [id number]) Subjective Physical Therapy Visit Type Type Treatment Note Visit Start Time 09:30 Visit Stop Time 09:46 Total Visit Minutes 16 Number of REQUIREMENTS MANAGER Visits 1 Physical Therapy Visit Comments Patient Comments Pt needing to use BR. Therapy Pain Assessment Pain When Pain Assessed During Mobility Pain Present Pain Present Pain Reported Location lower back pain Intensity 7 Scale Used Numeric (1 - 10) Pain Behaviors Facial Grimacing,Guarding, Restlessness Pain Management Techniques Distraction,Modification of Treatment,Re-positioning, Timing of Activity with Medications M4 PT-IP Mobility and Gait Start: 08/11/19 12:07 Freq: NEEDED Status: Active Protocol: Document 08/16/19 09:30 CLB (Rec: 08/16/19 13:02 CLB [id number]) PT-Bed Mobility Assessment Rolling Type of Rolling Log Rolling Level of Assist Moderate Assistance Supine to Sit Supine to Sit Maximum Assistance,1 Person Assistance,Bedrails Scooting Scooting to Edge of Bed Maximum Assistance PT-Transfer Assessment Sit to and From Stand Sit to and from Stand Moderate Assistance,1 Person Assistance,Use of Upper Extremities Equipment Transfer Assistive Device Gait Belt,Front Wheeled Walker Orthotic/Prosthetic Devices or Brace: No Transfers Transfer Destination Chair,Toilet Transfer Ability Level of Assist Moderate Assistance,1 Person Assistance,Use of Upper Extremities Comments Mobility Comments Pt required max cuing for all mobility. Pt is impulsive and requires cues to slow pace. Gait Assessment Gait Gait Assistance Required: Contact Guard Assist,Minimum Assistance,1 Person Assist Distance (Feet) 50 Able to Maintain Weight Bearing Status Yes During Gait Assistive Devices Assistive Device Gait Belt,Front Wheeled Walker Orthotic/Prosthetic Devices or Brace: No Gait Deviations General Gait Pattern Decreased Stride Length, Decreased Feet Clearance,Step- to Gait Factors Limiting Gait Function Factors Limiting Gait Function Decreased Activity Tolerance, Decreased Strength,Difficulty Following Directions, Incoordination,Limited Range of Motion,Pain,Poor Balance, Poor Safety Awareness Comments Gait Comments Pt required cues for safety around obstacles, cues to stay inside walker and posture as well as walker management. M5 PT-IP Objective Assessments Start: 08/11/19 12:07 Freq: NEEDED Status: Active Protocol: Document 08/14/19 10:32 AB (Rec: 08/14/19 12:24 AB [id number]) Orientation Orientation/Cognition Level of Alertness Confusional State Orientation Name Safety Awareness Decreased Safety Awareness Memory Description Short Term Impaired,Half-Way Impaired Gross Range of Motion Lower Extremity ROM Assessment Within Functional Limits Strength Lower Extremity Strength Assessment Bilaterally Impaired Comments Strength Comments RLE: 4-/5 LLE: 3+/5 M6 PT-IP Treatment Start: 08/11/19 12:07 Freq: NEEDED Status: Active Protocol: Document 08/14/19 15:03 AB (Rec: 08/14/19 15:59 AB [id number]) Physical Therapy Treatment Education Education Provided Precautions,Safety M7 PT-IP Assessment and Plan Start: 08/11/19 12:07 Freq: NEEDED Status: Active Protocol: Document 08/16/19 09:30 CLB (Rec: 08/16/19 13:02 CLB [id number]) PT Summary Assessment and Plan Potential Rehabilitation Potential Good Status of Condition at Evaluation Evolving Summary Impairments Pain,ROM,Strength,Balance, Coordination,Sensation,Tone, Cognition,Bed Mobility, Transfers,Gait,Activity Tolerance Progress Towards Goals Slow Progress due to Pain,Slow Progress due to Activity Tolerance Assessment Summary Pt continues to require Mod- Max A for bed mobility and Min -Mod A for all dynamic mobility. Pt requires Max cuing for safety and requires Min A during gait with FWW. Goals Bed Mobility Goal Contact Guard Assistance Transfer Goal Contact Guard Assistance,Front Wheeled Walker Gait Distance 150 Other Goals up/down 3 steps without rails/ SPC/DIEING OUT MACHINE OPERATOR CGA Days to Meet Goals 10 Frequency of Treatment Frequency Of Treatment Twice a Day Treatment Plan Physical Therapy Treatment Plan Bed Mobility Training,Transfer Training,Gait Training, Therapeutic Exercise,Balance Retraining,Post Op Education, Discharge Planning,Hot or Cold Pack,Neuromuscular Re-ed, Coordination Retraining,Manual Therapy Other Recommendations and Next Treatment transfers, ambulation as able Focus Recommendations To Nursing Amount of Assist Needed 1 Person Assist,2 Person Assist Discharge Recommendations PT Discharge Recommendations SNF Rehab
[2019-08-16 11:49] LABS: Alanine Aminotransferase 17 IU/L (<50); Albumin 2.8 g/dL (3.5-5.0); Albumin Globulin Ratio 1.1 (1.0-2.8); Alkaline Phosphatase 73 U/L (38-126); Aspartate Aminotransferase 33 IU/L (17-59); Bilirubin Total 0.8 mg/dL (0.2-1.3); Blood Urea Nitrogen 17 mg/dL (9-20); Calcium 8.6 mg/dL (8.4-10.2); Carbon Dioxide 26 mmol/L (22-32); Chloride 98 mmol/L (98-107); Estimated Glomerular Filt Rate > 60.0 mL/min (>60); Globulin 2.6 g/dL (1.7-4.1); Glucose 98 mg/dL (80-110); HEMOLYSIS < 15 (0-50); Potassium 4.1 mmol/L (3.4-5.1); Sodium 133 mmol/L (137-145); Total Protein 5.4 g/dL (6.3-8.2)
[2019-08-16 12:01] LABS: Add Manual Diff / Slide Review NO; Basophils Absolute Auto 0 /uL (0-100); Basophils Percent Auto 0.2 % (0-2); Eosinophils Absolute Auto 600 /uL (0-450); Eosinophils Percent Auto 8.4 % (2-4); Hemoglobin 7.1 g/dL (13.5-17.5); Lymphocytes Absolute Auto 1600 /uL (1100-4500); Lymphocytes Percent Auto 21.6 % (25-40); Mean Corpuscular HGB Conc 34.9 % (30-36); Mean Corpuscular Hemoglobin 31.4 PG (26-34); Mean Corpuscular Volume 89.9 fL (80-100); Monocytes Absolute Auto 700 /uL (0-900); Neutrophils Absolute Auto 4400 /uL (1500-7000); Neutrophils Percent Auto 60.8 % (50-75); Platelet Count 303 X10^3/uL (150-400); Red Blood Cell Count 2.28 X10^6/uL (4.5-5.9); Red Cell Distribution Width 13.9 % (11.6-14.8); White Blood Cell Count 7.3 X10^3/uL (4.5-11.0)
[2019-08-16 12:13] LABS: Hematocrit 20.5 % (41-53)
--- NOTE | 2019-08-16 12:49 | OT.IP.TRT ---
Current Diagnoses Syndrome of inappropriate secretion of antidiuretic hormone (08/10/19) Essential (primary) hypertension (08/10/19) Old myocardial infarction (08/10/19) Other forms of scoliosis, thoracolumbar region (08/10/19) Spinal stenosis, lumbar region with neurogenic claudication (08/10/19) Benign prostatic hyperplasia without lower urinary tract symptoms (08/10/19) Arthrodesis status (08/10/19) Surgery Performed Operation Date: 08/10/19 07:45 Actual Procedures p T1- L1, L3-L5 anterior instrumented fusion and L5S1 posterior instrumented fusion - Franklin Griffin MD Operation Date: 08/12/19 11:15 Actual Procedures p T10-S1 posterior instrumented fusion - Franklin Griffin MD Occupational Therapy Treatment Note M2 OT-IP Current Condition Start: 08/11/19 09:28 Freq: Status: Active Protocol: Document 08/14/19 15:41 CGR (Rec: 08/14/19 16:10 CGR [email or web address]) Occupational Therapy Current Condition Current Condition Evaluation Date 08/14/19 Treatment Diagnosis 2 part anterior T12-L5 and posterior T10-S1 fusion. Diagnosis Onset Date 08/10/19 Post Operative Precautions Lumbar Precautions Log Roll,No Twisting,Limit Bending,Lifting Restriction of 10 lbs,Gait Belt above Incisional Area M3 OT- IP Subjective and Pain Start: 08/11/19 09:28 Freq: Status: Active Protocol: Document 08/16/19 13:16 CGR (Rec: 08/16/19 13:22 CGR [email or web address]) OT- Subjective Occupational Therapy Visit Type Type Treatment Note Visit Start Time 12:30 Visit Stop Time 12:49 Total Visit Minutes 19 Notes Nursing requesting pt get back to bed as he had called earlier to transfer back to bed. OT Pain Assessment Pain When Pain Assessed During Mobility Pain Present Pain Present Pain Reported Location lower back pain Scale Used Did not rate but c/o pain with movement Management Techniques Modification of Treatment M4 OT- IP ADL's Start: 08/11/19 09:28 Freq: Status: Active Protocol: Document 08/16/19 13:16 CGR (Rec: 08/16/19 13:22 CGR [email or web address]) OT [id number] Comments OT Self-Feeding Comments Pt had already finished lunch OT ADL-Grooming General Evaluation Grooming Ability Standby Assistance Areas Needing Assistance Retrieving/Set-up of Grooming Items,Combing/Brushing Hair, Face Washing OT ADL-Oral Care General Eval Oral Care Ability Minimal Assistance Areas of Assistance Brushing Teeth Comments Oral Care Comments Pt brushed teeth twice. OT ADL-Dressing Comments OT Dressing Comments Not performed in this session. OT ADL-Toileting Comments OT Toileting Comments Pt declined need OT ADL-Bathing Comments OT Bathing Comments Not performed in this session. M5 OT- IP IADL's Start: 08/11/19 09:28 Freq: Status: Active Protocol: Document 08/14/19 15:41 CGR (Rec: 08/14/19 16:10 CGR [email or web address]) OT-Instrumental Activities of Daily Living Deficits IADL Deficits Identified Deficits Home Safety Awareness Awareness of Need for Assistance at Home Decreased Awareness Ability to Problem Solve Emergency Unable to Problem Solve Situations Medication Management Medication Management Caregiver Administers Money Management Money Management Caregiver Provides Assistance Meal Preparation Meal Preparation Caregiver Provides Assist Team Cdl Driver Team Cdl Driver Caregiver Provides Assist Driving Driving Comments Pt does not drive. M6 OT- IP Functional Cognition Start: 08/11/19 09:28 Freq: Status: Active Protocol: Document 08/16/19 13:16 CGR (Rec: 08/16/19 13:22 CGR [email or web address]) Cognitive Factors Limiting Selfcare Function Cognitive Ability Level of Alertness Alert Patient Orientation Name,Birthday Attention Span Ability Capable of Focused Attention Ability to Follow Commands Able to Follow One Step Commands with Increased Time, Able to Follow One Step Commands with Repetition Memory Description Immediate Impaired,Short Term Impaired,Working Impaired Safety Awareness Decreased Recall of Precautions,Decreased Ability to Apply Precautions, Underestimates Need for Assistance Problem Solving Ability Unable to Identify Errors, Needs Assist to Identify Solutions Cognitive Comments Cognitive Assessment Comments Pt appears more clear than at last session but still oriented to self and birthdate only. Needs reminders that he has already had his back sx. OT- Vision and Hearing OT- Hearing Assessment OT- Hearing Assessment WFL OT- Vision Assessment Visual Acuity Glasses All The Time Visual Attentiveness WFL Occular Pursuits WFL Visual Convergence WFL Visual [place] WFL M7 OT- IP Mobility and Balance Start: 08/11/19 09:28 Freq: Status: Active Protocol: Document 08/16/19 13:16 CGR (Rec: 08/16/19 13:22 CGR [email or web address]) OT- Bed Mobility Assessment Rolling Type of Rolling Log Rolling Level of Assistance Moderate Assistance Sit to Supine Sit to Supine Assist Moderate Assistance Scooting Scooting to Edge of Bed Minimal Assistance OT-Transfer Assessment Sit to and From Stand Sit to and from Stand Moderate Assistance,1 Person Assistance Transfers Transfer Ability Minimal Assistance Technique Transfer Destination Bed,Chair Transfer Technique Stand Step Pivot Devices Transfer Assistive Devices Gait Belt,Front Wheeled Walker OT- Balance Assessment Sitting Balance and Reactions Static Sitting Balance Ability Fair Dynamic Sitting Balance Ability Poor M8 OT- IP Objective Assessments Start: 08/11/19 09:28 Freq: Status: Active Protocol: Document 08/14/19 15:41 CGR (Rec: 08/14/19 16:10 CGR [email or web address]) OT Gross Range of Motion Upper Extremity Range of Motion Assessment Within Functional Limits OT Strength Upper Extremity Strength Assessment Within Functional Limits Comments Strength Comments grossly tested at 4/5 OT- Coordination Assessment Upper Extremity Finger to Nose Test Within Functional Limits Finger Tapping Test Within Functional Limits OT-Muscle Tone Assessment Muscle Tone WNL Yes OT Sensation Assessment Edema Edema Absent M9 OT- IP Assessment and Plan Start: 08/11/19 09:28 Freq: Status: Active Protocol: Document 08/16/19 13:16 CGR (Rec: 08/16/19 13:22 CGR [email or web address]) OT Summary Assessment and Plan Potential Rehabilitation Potential Good Analytic Complexity at Evaluation Moderate Summary OT Impairments Pain,Strength,Balance, Functional Cognition, Functional Mobility,Self- Feeding,Grooming,Dressing, Toileting,Bathing,Toilet Transfers,Shower Transfers Progress Towards Goals Slow Progress due to Pain Assessment Summary Pt tolerated limited activity on this date. Pt initially declined out of chair activity but then agreeable to getting back to bed per nursing request. Pt needed verbal and visual cues to continue with seated grooming and hygiene. Pt will continue to benefit from OT services. Recommendation is for SNF upon discharge. Goals Self-Feeding Goal Independent Grooming Goal Independent Dressing Goal Standby Assistance Toileting Goal Independent Bathing Goal Independent Toilet Transfer Goal Independent Shower Transfer Goal Independent Frequency of Treatment Frequency Of Treatment Once a Day Treatment Plan OT Treatment Plan ADL Training,Functional Cognition Training,Functional Mobility,Patient/Family Education,Discharge Planning Other Treatment Recommendations and Next ADLs standing as able. Treatment Focus Discharge Recommendations OT Discharge Recommendations SNF Rehab Home Equipment Needs TBD
--- NOTE | 2019-08-16 13:16 | PM.PNPO.1 ---
Subjective Subjective Date Patient Seen: 08/16/19 Time Patient Seen: 13:16 Interval history: Patient is status post two stage lumbar fusion with Dr. Griffin. He has a past medical history of hypertension, hyperlipidemia, probable dementia (being seen by a neurologist but not formally diagnosed per ), possible CAD (reports minor MS in the past with angioplasty only), and prior PUD. Postop 2nd stage he received 1 unit PRBCs, and repeat H&H following was 7.7. Had Hospitalist consult for evaluation of the patient given his medical history, hypotension, and anemia. Appreciate hospitalist recommendations. They are currently signed off but are available for any additional issues. Today per nursing patient mobilizing well with 1 assist this morning. They do report he gets more confused at night requiring 2-3 assists. H&H 7.1/20.5. Patient will get 2 units of PRBCs today. Pain current well controlled. Exam Vital Signs (past 8 hours): - 08/16/19 08:00 Temperature 97.6 F Pulse Rate 109 H Respiratory Rate 16 Blood Pressure 118/70 Pulse Oximetry 97 Oxygen Delivery Method Room Air Oxygen Flow Rate 0 Narrative Exam Narrative: Patient lying in bed in no acute distress. Calves are soft, compressible, nontender bilaterally. Pulses are symmetrical. Lateral and posterior dressings are CDI. Objective Labs Result Diagrams: 08/16/19 11:20 08/16/19 11:20 Labs: Laboratory Results - last 24 hr 08/16/19 08/16/19 11:20 11:20 WBC 7.3 RBC 2.28 L Hgb 7.1 L Hct 20.5 L* MCV 89.9 MCH 31.4 MCHC 34.9 RDW 13.9 Plt Count 303 Neut % (Auto) 60.8 Lymph % (Auto) 21.6 L Buchanan % (Auto) 9.0 Eos % (Auto) 8.4 H Baso % (Auto) 0.2 Neut # (Auto) 4400 Lymph # (Auto) 1600 Buchanan # (Auto) 700 Eos # (Auto) 600 H Baso # (Auto) 0 Sodium 133 L Potassium 4.1 Chloride 98 Carbon Dioxide 26 BUN 17 Creatinine 1.00 Estimated GFR > 60.0 BUN/Creatinine Ratio 17.0 Glucose 98 Calcium 8.6 Total Bilirubin 0.8 AST 33 ALT 17 Alkaline Phosphatase 73 Total Protein 5.4 L Albumin 2.8 L Globulin 2.6 Albumin/Globulin Ratio 1.1 Assessment & Plan Post-op Postoperative Procedures: Procedures Operation Date: 08/10/19 07:45 Actual Procedures Side Surgeon p T1- L1, L3-L5 anterior instrumented fusion and L5S1 posterior instrumented fusion Franklin Griffin MD Operation Date: 08/12/19 11:15 Actual Procedures Side Surgeon p T10-S1 posterior instrumented fusion Franklin Griffin MD The patient will get 2 units of PRBCs today. Patient would do best in transferring to SNF, [facility], tomorrow morning given his confusion and decreased mobilization at night. This will also give us an opportunity to recheck his H&H tomorrow. Continue current pain control. Continue mobilizing with physical therapy. Patient will discharge to [facility] tomorrow if medically stable. Quality VTE Deep Vein Thrombosis/Pulmonary Embolism Present on Admission: No
--- NOTE | 2019-08-16 14:12 | CM.DPC ---
DCP SNF Planning: [facility] called [employer] covering [facility] and confirmed they have the clinicals needed to review today for SNF auth. Return call from [facility]leana at [employer] stating pt was approved for SNF. SW called [facility] (pt/spouse) first choice and confirmed they can accept the pt but not today but can tomorrow. CHIO spoke to John BUCKLEY who states pt receiving transfusion this afternoon and should be stable for d/c tomorrow. SW called pt's spouse due to pt's memory issues and updated on insurance auth and SNF acceptance near their home and spouse is agreeable with plan of d/c to [facility] tomorrow via facility van if pt still safe for w/c transport. Plan: SW to follow for likely pt d/c to [facility] tomorrow if medically stable and confirm pt still safe for cabulance transport at d/c. SW to update [facility] on d/c date and location of [facility]. Rissa Brice MSW
--- NOTE | 2019-08-16 14:16 | PT.IPTN ---
Current Diagnoses Syndrome of inappropriate secretion of antidiuretic hormone (08/10/19) Essential (primary) hypertension (08/10/19) Old myocardial infarction (08/10/19) Other forms of scoliosis, thoracolumbar region (08/10/19) Spinal stenosis, lumbar region with neurogenic claudication (08/10/19) Benign prostatic hyperplasia without lower urinary tract symptoms (08/10/19) Arthrodesis status (08/10/19) Surgery Performed Operation Date: 08/10/19 07:45 Actual Procedures p T1- L1, L3-L5 anterior instrumented fusion and L5S1 posterior instrumented fusion - Franklin Griffin MD Operation Date: 08/12/19 11:15 Actual Procedures p T10-S1 posterior instrumented fusion - Franklin Griffin MD Physical Therapy Treatment Note M2 PT-IP Current Condition Start: 08/11/19 12:07 Freq: NEEDED Status: Active Protocol: Document 08/14/19 10:32 AB (Rec: 08/14/19 12:24 AB [id number]) Physical Therapy Current Condition Current Condition Evaluation Date 08/11/19 Treatment Diagnosis T10-S1 post. fusion; T12 - L5 anterior fusion; difficulty in walking Onset Date 08/10/19 Precautions Lumbar Precautions Log Roll,No Twisting,Limit Bending,Lifting Restriction of 10 lbs,Gait Belt above Incisional Area Other Precautions falls M3 PT-IP Subjective Start: 08/11/19 12:07 Freq: NEEDED Status: Active Protocol: Document 08/16/19 14:10 CLB (Rec: 08/16/19 14:16 CLB [id number]) Subjective Physical Therapy Visit Type Type Patient Unavailable Notes Pt returned to bed with OT. Pt H and H low and pt will be getting blood. Will check back with pt tomorrow. M4 PT-IP Mobility and Gait Start: 08/11/19 12:07 Freq: NEEDED Status: Active Protocol: Document 08/16/19 09:30 CLB (Rec: 08/16/19 13:02 CLB [id number]) PT-Bed Mobility Assessment Rolling Type of Rolling Log Rolling Level of Assist Moderate Assistance Supine to Sit Supine to Sit Maximum Assistance,1 Person Assistance,Bedrails Scooting Scooting to Edge of Bed Maximum Assistance PT-Transfer Assessment Sit to and From Stand Sit to and from Stand Moderate Assistance,1 Person Assistance,Use of Upper Extremities Equipment Transfer Assistive Device Gait Belt,Front Wheeled Walker Orthotic/Prosthetic Devices or Brace: No Transfers Transfer Destination Chair,Toilet Transfer Ability Level of Assist Moderate Assistance,1 Person Assistance,Use of Upper Extremities Comments Mobility Comments Pt required max cuing for all mobility. Pt is impulsive and requires cues to slow pace. Gait Assessment Gait Gait Assistance Required: Contact Guard Assist,Minimum Assistance,1 Person Assist Distance (Feet) 50 Able to Maintain Weight Bearing Status Yes During Gait Assistive Devices Assistive Device Gait Belt,Front Wheeled Walker Orthotic/Prosthetic Devices or Brace: No Gait Deviations General Gait Pattern Decreased Stride Length, Decreased Feet Clearance,Step- to Gait Factors Limiting Gait Function Factors Limiting Gait Function Decreased Activity Tolerance, Decreased Strength,Difficulty Following Directions, Incoordination,Limited Range of Motion,Pain,Poor Balance, Poor Safety Awareness Comments Gait Comments Pt required cues for safety around obstacles, cues to stay inside walker and posture as well as walker management. M5 PT-IP Objective Assessments Start: 08/11/19 12:07 Freq: NEEDED Status: Active Protocol: Document 08/14/19 10:32 AB (Rec: 08/14/19 12:24 AB [id number]) Orientation Orientation/Cognition Level of Alertness Confusional State Orientation Name Safety Awareness Decreased Safety Awareness Memory Description Short Term Impaired,Assisted Impaired Gross Range of Motion Lower Extremity ROM Assessment Within Functional Limits Strength Lower Extremity Strength Assessment Bilaterally Impaired Comments Strength Comments RLE: 4-/5 LLE: 3+/5 M6 PT-IP Treatment Start: 08/11/19 12:07 Freq: NEEDED Status: Active Protocol: Document 08/14/19 15:03 AB (Rec: 08/14/19 15:59 AB [id number]) Physical Therapy Treatment Education Education Provided Precautions,Safety M7 PT-IP Assessment and Plan Start: 08/11/19 12:07 Freq: NEEDED Status: Active Protocol: Document 08/16/19 09:30 CLB (Rec: 08/16/19 13:02 CLB [id number]) PT Summary Assessment and Plan Potential Rehabilitation Potential Good Status of Condition at Evaluation Evolving Summary Impairments Pain,ROM,Strength,Balance, Coordination,Sensation,Tone, Cognition,Bed Mobility, Transfers,Gait,Activity Tolerance Progress Towards Goals Slow Progress due to Pain,Slow Progress due to Activity Tolerance Assessment Summary Pt continues to require Mod- Max A for bed mobility and Min -Mod A for all dynamic mobility. Pt requires Max cuing for safety and requires Min A during gait with FWW. Goals Bed Mobility Goal Contact Guard Assistance Transfer Goal Contact Guard Assistance,Front Wheeled Walker Gait Distance 150 Other Goals up/down 3 steps without rails/ SPC/ENGINE SERVICE REPAIRER CGA Days to Meet Goals 10 Frequency of Treatment Frequency Of Treatment Twice a Day Treatment Plan Physical Therapy Treatment Plan Bed Mobility Training,Transfer Training,Gait Training, Therapeutic Exercise,Balance Retraining,Post Op Education, Discharge Planning,Hot or Cold Pack,Neuromuscular Re-ed, Coordination Retraining,Manual Therapy Other Recommendations and Next Treatment transfers, ambulation as able Focus Recommendations To Nursing Amount of Assist Needed 1 Person Assist,2 Person Assist Discharge Recommendations PT Discharge Recommendations SNF Rehab
--- NOTE | 2019-08-16 15:36 | PC.NURSE ---
Addendum entered by Tahmina Esquivel R.N. 08/16/19 21:37: 1st unit PRBC's complete at 1820, patient tolerated well. HR still 100-107 bpm. Patient increasingly confused tonight, disoriented to place, time, said I had that back surgery months ago. He asked me to help him charge his kenrick phone, I then took phone to main nurses' station to plug into shredding machine operator, labeling phone with his patient ID. He immediately asked when can I have my phone back? several times while I went back to room to start 2nd unit of blood. Medicated earlier with 2 tabs oxycodone, appears more comfortable when we reposition him, mostly having facial grimace with repositioning, somewhat restless at rest, distractable, encouraged him to watch television program. 2nd unit of PRBC's infusing, IV to RUE flushing & infusing with no difficulty. Original Note: Evening note: Leobardo is resting in bed, oriented to self. He is pale, drowsy and falls asleep during assessment. LS clear throughout. VS are stable, RA oxygen 93% IV to RUE flushed with no difficulties, new order to transfuse 2 units PRBC's, lab calling to say blood ready. There is a signed blood consent in patient's chart. verbalized her awareness that doctor ordered 2 units of blood and of low blood counts.
[2019-08-16] MEDS: SENNOSIDES 8.6 MG TABLET 17.2 MG PO (21:04)
[2019-08-16] MEDS: GABAPENTIN 300 MG CAPSULE PO (21:05)
[2019-08-16] MEDS: SIMVASTATIN 40 MG TABLET PO (21:05)
[2019-08-17] MEDS: OXYCODONE IR 5 MG TABLET 10 MG PO ×3 (00:15→12:21)
--- NOTE | 2019-08-17 00:27 | PC.NURSE ---
Addendum entered by Merari Worley R.N. 08/17/19 06:17: Assisted to stand at side of bed with walker and 2 assists to urinate. Did not seem to have as much pain and states that went better than it did yesterday. Slept most of the night. Original Note: Patient oriented to self, birthday and day of week only. Breath sounds diminished but CTA; RA sat 100%. HRR. Denies nausea. BT present and abdomen is soft. Denies dysuria, frequency or urgency; is getting out of bed to void as doesn't empty bladder well using urinal in bed. Able to move self but complains of sharp, stabbing pain with any movement; medicated with Oxycodone. Dressing to back intact with no new drainage. Has intact Allevyn dressings on right lateral hip and 2 on left forearm. Noted large, purple bruise on right side of lower back CMS intact except for what he reports is chronic tingling of bilateral LE. Foot SCD's applied after being up to urinate earlier. Fall risk score is high and bed alarm is activated. 0033 Blood transfusion complete. Patient tolerated well.
[2019-08-17 00:33] VITALS: BP 136/70; PULSE 95; RESP 22; TEMP 37.5
[2019-08-17] MEDS: SODIUM CHLORIDE 0.9% FLUSH 10 ML IV ×2 (00:34→09:27)
[2019-08-17 05:49] LABS: Hemoglobin 8.8 g/dL (13.5-17.5); Mean Corpuscular HGB Conc 34.9 % (30-36); Mean Corpuscular Hemoglobin 30.8 PG (26-34); Mean Corpuscular Volume 88.4 fL (80-100); Platelet Count 300 X10^3/uL (150-400); Red Blood Cell Count 2.85 X10^6/uL (4.5-5.9); Red Cell Distribution Width 14.4 % (11.6-14.8); White Blood Cell Count 6.8 X10^3/uL (4.5-11.0)
[2019-08-17 05:57] LABS: Hematocrit 25.2 % (41-53)
[2019-08-17] MEDS: PANTOPRAZOLE 40 MG TABLET PO (06:01)
[2019-08-17 06:13] VITALS: BP 126/60; PULSE 81; RESP 20; TEMP 36.8; O2SAT 98
--- NOTE | 2019-08-17 07:34 | P.DS_ITS ---
History of Present Illness History of Present Illness Date Patient Seen: 08/17/19 Time Patient Seen: 07:34 Chief complaint: [id number] Narrative: [age] year old male with intractable pain from lumbar stenosis and scoliosis. They had failed conservative management and requested operative intervention. Risks and benefits of surgery were discussed and appropriate consents were obtained. Discharge Providers Provider Date of admission: 08/10/19 05:49 Discharge Date: 08/17/19 Consults: 08/10/19 15:46 Consult to Occupational Therapy Evaluate & Treat Comment: Physician Instructions: Evaluate and treat Consult to Physical Therapy Evaluate & Treat Comment: Physician Instructions: Evaluate and Treat 08/12/19 18:00 Consult to Occupational Therapy Evaluate & Treat Comment: Physician Instructions: Evaluate and treat Consult to Physical Therapy Evaluate & Treat Comment: Physician Instructions: Evaluate and Treat Consult to Respiratory Therapy Evaluate & Treat Comment: Physician Instructions: Evaluate and treat Discharge provider: Felicia Davis PA-C Summary Hospital Course Discharge Diagnosis: s/p T10-S1 XLIF Hypertension Hyperlipidemia [facility] Hospital Course: Patient is status post T1- L1, L3-L5 anterior instrumented fusion and L5S1 posterior instrumented fusion on 08/10, and T10-S1 posterior instrumented fusion on 08/[address] Griffin. Postop 2nd stage, he received a total of 3 unit PRBCs throughout his stay for postoperative hemorrhagic anemia. Patient started on iron and vitamin c. Had Hospitalist consult for evaluation of the patient given his medical history, hypotension, and anemia. Held metoprolol per medicine advise given his hypotension throughout his stay. We did restart home Lisinopril yesterday. Patient ok to restart metoprolol at discharge. Patient had hyponatremia prior to surgery given dosing of home oral sodium. This was continued throughout his stay and sodium was monitored. Patient did well in the mornings mobilizing with 1 assist but would get more confused later in the day and require 2+ assists. He is eating and voiding without difficulty or assistance. Patient did have urinary retention after 2nd stage surgery. This has resolved. Status at Discharge Functional status at discharge: uses cane/walker Exam Vital Signs (past 8 hours): - 08/17/19 00:33 08/17/19 06:13 Temperature 99.5 F 98.3 F Pulse Rate 95 H 81 Respiratory Rate 22 20 Blood Pressure 136/70 126/60 Pulse Oximetry 98 Oxygen Delivery Method Room Air Oxygen Flow Rate 0 Narrative Exam Narrative: Patient lying in bed in no acute distress. Sensation intact to light touch throughout bilateral lower extremities. Dressings on back and left flank are CDI. He is able to actively dorsiflex and plantar flex. Calves are soft, compressible, nontender bilaterally. Pain well controlled. No complaints this morning. Objective Labs Result Diagrams: 08/17/19 05:25 08/16/19 11:20 Labs: Laboratory Results - last 24 hr 08/12/19 08/16/19 08/16/19 06:04 11:20 11:20 WBC 7.3 RBC 2.28 L Hgb 7.1 L Hct 20.5 L* MCV 89.9 MCH 31.4 MCHC 34.9 RDW 13.9 Plt Count 303 Neut % (Auto) 60.8 Lymph % (Auto) 21.6 L Howell % (Auto) 9.0 Eos % (Auto) 8.4 H Baso % (Auto) 0.2 Neut # (Auto) 4400 Lymph # (Auto) 1600 Howell # (Auto) 700 Eos # (Auto) 600 H Baso # (Auto) 0 Sodium 133 L Potassium 4.1 Chloride 98 Carbon Dioxide 26 BUN 17 Creatinine 1.00 Estimated GFR > 60.0 BUN/Creatinine Ratio 17.0 Glucose 98 Calcium 8.6 Total Bilirubin 0.8 AST 33 ALT 17 Alkaline Phosphatase 73 Total Protein 5.4 L Albumin 2.8 L Globulin 2.6 Albumin/Globulin Ratio 1.1 Blood Type Antibody Screen Crossmatch See Detail 08/16/19 08/17/19 11:20 05:25 WBC 6.8 RBC 2.85 L Hgb 8.8 L Hct 25.2 L MCV 88.4 MCH 30.8 MCHC 34.9 RDW 14.4 Plt Count 300 Neut % (Auto) Lymph % (Auto) Howell % (Auto) Eos % (Auto) Baso % (Auto) Neut # (Auto) Lymph # (Auto) Howell # (Auto) Eos # (Auto) Baso # (Auto) Sodium Potassium Chloride Carbon Dioxide BUN Creatinine Estimated GFR BUN/Creatinine Ratio Glucose Calcium Total Bilirubin AST ALT Alkaline Phosphatase Total Protein Albumin Globulin Albumin/Globulin Ratio Blood Type B Positive Antibody Screen Negative Crossmatch See Detail Discharge Plan Discharge Plan Patient Disposition: SNF Transfer to: [facility] Consult as needed: Dental, Hearing, Mental health, Podiatry and Vision Discharge Med Rec/Prescriptions Prescriptions: New celecoxib [Celebrex] 200 mg Capsule 200 mg PO BID PRN (Reason: pain) Qty: 60 RF: 0 docusate sodium [DOK] 100 mg Capsule 100 mg PO BID PRN (Reason: constipation) Qty: 30 RF: 0 oxycodone 5 mg Tablet 5 mg PO Q4HR PRN (Reason: pain) Qty: 40 RF: 0 ascorbic acid (vitamin C) [Vitamin C] 500 mg Tablet 500 mg PO BID Qty: 30 RF: 0 pantoprazole 40 mg Tablet,Delayed Release (Dr/Ec) 40 mg PO 0700 Qty: 20 RF: 0 ferrous sulfate 325 mg (65 mg iron) Tablet 325 mg PO DAILY Qty: 30 RF: 0 Continued bupropion HCl 150 mg Tablet Sustained-Release 12 Hr 150 mg PO BID RF: 0 metoprolol succinate 200 mg Tablet Extended Release 24 Hr 200 mg PO DAILY RF: 0 sodium chloride 1 gram Tablet 1,000 mg PO BID RF: 0 aspirin 81 mg Tablet,Delayed Release (Dr/Ec) 81 mg PO DAILY RF: 0 simvastatin 40 mg Tablet 40 mg PO BEDTIME RF: 0 omeprazole 20 mg Capsule,Delayed Release(Dr/Ec) 20 mg PO DAILY RF: 0 lisinopril 40 mg Tablet 40 mg PO DAILY RF: 0 Slow-Mag 71.5 mg Tablet,Delayed Release (Dr/Ec) 71.5 mg PO BID RF: 0 Discontinued tramadol 50 mg Tablet 100 mg PO Q8H RF: 0 Follow up/Referrals: Franklin Griffin MD [Physician] - Discharge Health Status Brief summary of current health status: Patient recovering following two staged lumbar fusion. Patient slow to mobilize, with worsening confusion in the afternoons and nights. Precautions: [place] Provider Discharge Instructions Diet: Diet as Tolerated Liquid consistency: Normal/Thin Food texture: Regular Activity: limited BLT, 10 lbs Cold/Heat Therapy: Ice packs as needed Skin/Wound/Dressing Care Report to your healthcare provider any signs of infection, such as:: chills, fever, night sweats, increased pain, unusual drainage and unusual redness Dressing: may change dressing and shower on 08/17 Special Rehabilitation Services Reason for rehabilitation: Post-operative therapy Rehab type: Physical therapy and Occupational therapy Visit Report/Discharge Packet Instructions: DI for Laminectomy, DI for Lateral Lumbar Interbody Fusion Stand Alone Forms: Surgery Discharge Quality VTE Deep Vein Thrombosis/Pulmonary Embolism Present on Admission: No
--- NOTE | 2019-08-17 08:43 | CM.DPC ---
dcp: continued: Case received, EMR reviewed including the d/c for today. Followed up accordingly: Spoke with [place]ust[place] [place] orders and PASRR (completed earlier this week by another dc partner integration planner, reviewed as per protocol and placed with CMsp to scan to EMR). Orders and PASRR also placed in snf packet and have updated THERESA Cali and pt's Merari [facility] [place] pick pt up at 1300. Will follow prn until pt leaves. Pt is currently sleeping. Merari plans to come over to see him this morning and will then follow him to the snf.
[2019-08-17 09:00] VITALS: BP 131/76; PULSE 81; RESP 18; TEMP 36.4; O2SAT 98
[2019-08-17] MEDS: ACETAMINOPHEN 325 MG TABLET 975 MG PO (09:27)
[2019-08-17 09:28] VITALS: BP 139/76; PULSE 81
[2019-08-17] MEDS: ASCORBIC ACID 500 MG TABLET PO (09:28)
[2019-08-17] MEDS: TAMSULOSIN 0.4 MG CAPSULE PO (09:28)
[2019-08-17] MEDS: DOCUSATE 100 MG CAPSULE PO (09:28)
[2019-08-17] MEDS: LISINOPRIL 20 MG TABLET 40 MG PO (09:28)
[2019-08-17] MEDS: ASPIRIN EC 81 MG TABLET PO (09:28)
[2019-08-17] MEDS: CELECOXIB 200 MG CAPSULE PO (09:29)
[2019-08-17] MEDS: buPROPion SR 150 MG TAB PO (09:30)
[2019-08-17] MEDS: SODIUM CHLORIDE 1,000 MG TABLET 1000 MG PO (09:30)
[2019-08-17] MEDS: FERROUS SULFATE 325 MG TABLET PO (09:30)
[2019-08-17] MEDS: MAGNESIUM CHLORIDE 64 MG TABLET PO (09:30)
--- NOTE | 2019-08-17 09:57 | PC.NURSE ---
Addendum entered by Karely Adam R.N. 08/17/19 15:55: This ghost writer never heard back from [facility], despite trying a few times to call and give report. Informed savanah shift hemodialysis charge nurse Rosalva Pelayo so she knows in case they do end up calling. Addendum entered by Karely Adam R.N. 08/17/19 14:07: Patient left at approx 1315 via wheelchair. Addendum entered by Karely Adam R.N. 08/17/19 14:04: Transfer: IV dc'd intact. All belongings collected and sent with patient at time of discharge. Message left at [facility] asking them to call back for report if they want it. Original Note: Shift summary: Awake and alert, oriented to self/birthdate and . Confused about where he is and why he is here. Medicated with Oxycodone and Tylenol for C/O 4/10 back pain. Stood at bedside to use urinal (w/ 2-person assist) and actually moved quite well. He reports the pain is not as bad as it was yesterday when I moved. Denies numbness/tingling in extremities, CMS++. Dressings to mid back, L flank and arms dry/intact. Midline back dressing with small area of old drainage on upper left side, all other dressings are C/D/I. Lungs CTA, dim throughout. HRR, distant to auscultation. Able to make needs known and encouraged to do the same. Light within reach, bed alarm on. in room and attentive. Plan is to transfer to [facility] at 1300.
--- NOTE | 2019-08-17 10:34 | PT.IPTN ---
Current Diagnoses Syndrome of inappropriate secretion of antidiuretic hormone (08/10/19) Essential (primary) hypertension (08/10/19) Old myocardial infarction (08/10/19) Other forms of scoliosis, thoracolumbar region (08/10/19) Spinal stenosis, lumbar region with neurogenic claudication (08/10/19) Benign prostatic hyperplasia without lower urinary tract symptoms (08/10/19) Arthrodesis status (08/10/19) Surgery Performed Operation Date: 08/10/19 07:45 Actual Procedures p T1- L1, L3-L5 anterior instrumented fusion and L5S1 posterior instrumented fusion - Franklin Griffin MD Operation Date: 08/12/19 11:15 Actual Procedures p T10-S1 posterior instrumented fusion - Franklin Griffin MD Physical Therapy Treatment Note M2 PT-IP Current Condition Start: 08/11/19 12:07 Freq: NEEDED Status: Active Protocol: Document 08/14/19 10:32 AB (Rec: 08/14/19 12:24 AB [id number]) Physical Therapy Current Condition Current Condition Evaluation Date 08/11/19 Treatment Diagnosis T10-S1 post. fusion; T12 - L5 anterior fusion; difficulty in walking Onset Date 08/10/19 Precautions Lumbar Precautions Log Roll,No Twisting,Limit Bending,Lifting Restriction of 10 lbs,Gait Belt above Incisional Area Other Precautions falls M3 PT-IP Subjective Start: 08/11/19 12:07 Freq: NEEDED Status: Active Protocol: Document 08/17/19 10:32 CLB (Rec: 08/17/19 10:34 CLB [id number]) Subjective Physical Therapy Visit Type Type Patient Refusal Notes Pt refused getting up because he had just been up with nursing to use the BR. Pt in bed with present.
[2019-08-17 12:33] VITALS: BP 126/70; PULSE 90; RESP 18; TEMP 36.3; O2SAT 96
== END 2019-08-17 15:56 | DRG 454 ==
PROVIDERS: Orthopaedic Surgery Foot and Ankle Surgery; Physician Assistant Surgical; Admitting Provider Orthopaedic Surgery; Visit Provider Orthopaedic Surgery
PROC: 0SG00A0 Fusion of Lumbar Vertebral Joint with Interbody Fusion Device, Anterior Approach, Anterior Column, Open Approach (ICD-10-PCS; CPT 22558; principal; 2019-08-10 07:45)
PROC: 0RG7071 Fusion of 2 to 7 Thoracic Vertebral Joints with Autologous Tissue Substitute, Posterior Approach, Posterior Column, Open Approach (ICD-10-PCS; principal; 2019-08-12 11:15)
DX: M41.85 Other forms of scoliosis, thoracolumbar region (principal); D62 Acute posthemorrhagic anemia; E87.1 Hypo-osmolality and hyponatremia; M48.062 Spinal stenosis, lumbar region with neurogenic claudication; M54.16 Radiculopathy, lumbar region; F03.90 Unspecified dementia, unspecified severity, without behavioral disturbance, psychotic disturbance, mood disturbance, and anxiety; I10 Essential (primary) hypertension; E78.5 Hyperlipidemia, unspecified; F17.210 Nicotine dependence, cigarettes, uncomplicated; F32.9 Major depressive disorder, single episode, unspecified; G89.29 Other chronic pain; M43.16 Spondylolisthesis, lumbar region
CPT/HCPCS: 36415; 36430; 72100; 76000; 80048; 80053; 85014; 85018; 85025; 85027; 86850; 86900; 86901; 87070; 87075; 87205; 93005; 94762; 97116; 97162; 97166; 97530; 97535; C1776; P9016; J0330; J0595; J1100; J1170; J2250; J2274; J2405; J2704; J3010; S0077

== ENCOUNTER → 2024-11-20 10:35 | Outpatient (CLI) | payer OTHER, SELFPAY ==
[2021-11-06 15:52] VITALS: BMI 20.7
--- NOTE | 2024-11-20 | DI.MRI.S_ITS ---
PROCEDURE: MR PELVIC PROSTATE PROTOCOL INDICATIONS: PROSTATE CANCER,PLEASE EVAL TECHNIQUE: Coronal HASTE, axial T1 FSE with fat saturation, 3-plane nonbreath-hold T2 FSE. After the administration of contrast, dynamic axial, delayed axial and coronal VIBE or 2-D FLASH with fat saturation through the pelvis. Diffusion weighted imaging and ADC was performed. COMPARISON: None. FINDINGS: Image quality: Essentially nondiagnostic due to marked rectal gas and metallic artifact. Prostate: Glandular volume is small measuring 2.9 x 1.8 x 1.9 centimeters. Estimated volume is 5.2 cc. Suspect postsurgical changes are present. No PI-RADS 4 or 5 lesion identified. Genitourinary system: Unremarkable bladder, which is under distended. Bowel and peritoneum: No bowel obstruction in the lower abdomen. No pathologic ascites. Nodes and vessels: No pathologic lymph nodes by size criteria. No aneurysmal arteries identified Soft tissues: Unremarkable pelvic wall. Bones: No focal suspicious lesion. Lumbosacral fusion hardware and right hip arthroplasty. IMPRESSION: Suspect post treatment changes of the prostate bed. There is no focal suspicious signal identified. However, this exam is nearly nondiagnostic due to the marked magnetic field field inhomogeneity and susceptibility artifact from the right hip arthroplasty and marked rectal gas. If there is further concern, PSMA PET-CT is suggested. Dictated by: Lance Sanders M.D. on 11/22/2024 at 8:47 Approved by: Lance Sanders M.D. on 11/22/2024 at 8:54
== END ==
PROVIDERS: PCP Family Medicine; Referring Provider Urology; Visit Provider Urology
DX: C61 Malignant neoplasm of prostate (principal); Z98.1 Arthrodesis status; Z96.641 Presence of right artificial hip joint
CPT/HCPCS: 72197; A9579